=== PATIENT | female | born 1990 | race Caucasian/White ===

== ENCOUNTER 2023-03-22 08:58 | Outpatient (CLI) | payer BC, SELFPAY ==
--- NOTE | 2023-03-22 09:15 | CRLHL7_ITS ---
For Patients: As a result of the Cures Act, medical imaging exams and procedure reports are released immediately into your electronic medical record. You may view this report before your referring provider. If you have questions, please contact your health care provider. INDICATION: First trimester scan, establish dates. COMPARISON: None. TECHNIQUE: Real-time mathias-scale imaging of the pelvis was performed. FINDINGS: Sonographic imaging demonstrates a single living intrauterine gestation. The embryo demonstrates a regular cardiac rate measuring 157 beats per minute. The embryo`s crown-rump length measurement of 1.5 cm corresponds to a gestational age of 7 weeks 6 days with a sonographic due date of 11/02/2023. There is a normal-appearing yolk sac. There are no gross abnormalities noted within the embryo at this early state of development. The gestational sac has a normal appearance. There is a 0.7 x 1.1 x 1.0 cm perigestational hemorrhage. The amount of fluid within the sac appears appropriate for gestational age. The cervix is closed. The myometrium appears normal. The ovaries are of normal size. Corpus luteal cyst left ovary. There are no suspicious fluid collections noted in the cul-de-sac. IMPRESSION: Single living intrauterine with sonographic gestational age 7 weeks 6 days and sonographic due date 11/02/2023. Lower uterine segment subchorionic hemorrhage measuring 0.7 x 1.1 x 1.0 cm. Dictated by Jamari Medina MD @ 03/22/2023 11:44:36 AM (Electronically Signed)
== END 2023-03-22 08:59 | disposition home or self-care (01) ==
LOC: US 08:59
PROVIDERS: Visit Provider Advanced Practice Midwife
DX: Z34.91 Encounter for supervision of normal pregnancy, unspecified, first trimester (principal); O20.9 Hemorrhage in early pregnancy, unspecified; Z3A.01 Less than 8 weeks gestation of pregnancy
CPT/HCPCS: 76817; 86592; 86703; 86704; 86706; 86762; 86787; 86803; 86850; 86900; 86901; 87086; 87340; 87491; 87591

== ENCOUNTER 2023-05-17 10:35 | Outpatient (CLI) | payer BC, SELFPAY | END 2023-05-17 10:36 | disposition home or self-care (01) | LOC: NFLDREF 10:37 | PROVIDERS: PCP Advanced Practice Midwife; Visit Provider Advanced Practice Midwife | DX: Z34.82 Encounter for supervision of other normal pregnancy, second trimester (principal) | CPT/HCPCS: 81511 ==

== ENCOUNTER 2023-06-14 13:49 | Outpatient (CLI) | payer BC, SELFPAY ==
--- NOTE | 2023-06-14 14:00 | US_ITS ---
Patient: NATANAEL AWAN Facility:?[facility] Patient ID:?[id number] Site Patient ID:?[id number]. Site :?[id number] Study:?US-OB Pelvis OB ANATOMY-06/14/2023 2:52:57 PM Ordering Physician:NESHA MONTEMAYOR Final Report: INDICATION: 2nd trimester anatomical survey. TECHNIQUE: Ultrasound OB pelvis transabdominal. Real-time mathias-scale imaging of the fetus was performed as well as color Doppler and spectral Doppler analysis of the umbilical artery. COMPARISON: March 22, 2023. FINDINGS: Sonographic imaging demonstrates a single living intrauterine gestation. Fetus demonstrates a regular cardiac rate of 150 beats per minute. Fetus has a cephalic orientation. The placenta lies anterior without evidence of placenta previa. Amniotic fluid volume appears normal with the deepest pocket of 5 cm. Cervical length is 4 cm. Biometry: Biparietal diameter: 19 weeks 1 day, 18th percentile. Head circumference: 19 weeks 1 day, 11th percentile. Abdominal circumference: 20 weeks 0 days, 44th percentile. Femoral length: 20 weeks 0 days, 43rd percentile. The composite ultrasound gestational age is calculated at 19 weeks 5 days with an estimated sonographic due date of November 03, 2023. The weight is estimated at 320 grams, the 40th percentile. Anatomical Survey: 4 chamber heart: Visualized. Stomach: Visualized. Kidneys: Visualized. Bladder: Visualized. Spine: Visualized. Sacrum: Visualized. 4 extremities: Visualized. Cord insertion: Visualized. 3V cord: Visualized. Face: Visualized. Nose: Visualized. Lips: Visualized. Cerebellum: Visualized. Cisterna Magna: Visualized. Lateral ventricles: Visualized. IMPRESSION: 1. Single viable intrauterine . 2. No intrinsic abnormalities noted on anatomic survey. Dictated by Suresh Garcia MD @ 06/14/2023 3:11:25 PM Signed by:?Suresh Garcia MD @06/14/2023 3:11:25 PM (Electronic Signature)
== END 2023-06-14 13:50 | disposition home or self-care (01) ==
LOC: US 13:50
PROVIDERS: Visit Provider Advanced Practice Midwife
DX: Z34.92 Encounter for supervision of normal pregnancy, unspecified, second trimester (principal); Z3A.19 19 weeks gestation of pregnancy
CPT/HCPCS: 76805

== ENCOUNTER 2023-08-09 12:32 | Outpatient (CLI) | payer BC, SELFPAY | END 2023-08-09 12:33 | disposition home or self-care (01) | LOC: NFLDREF 08-29 14:22 | PROVIDERS: Visit Provider Advanced Practice Midwife | DX: Z34.83 Encounter for supervision of other normal pregnancy, third trimester (principal) | CPT/HCPCS: 86592 ==

== ENCOUNTER 2023-09-24 09:35 | Outpatient (CLI) | payer BC, SELFPAY | END 2023-09-24 09:36 | disposition home or self-care (01) | LOC: NFLDREF 09-28 15:15 | PROVIDERS: Visit Provider Advanced Practice Midwife | DX: Z34.93 Encounter for supervision of normal pregnancy, unspecified, third trimester (principal); Z3A.34 34 weeks gestation of pregnancy | CPT/HCPCS: 82728 ==

== ENCOUNTER 2023-10-04 08:54 | Outpatient (RCR) | payer BC, SELFPAY ==
--- NOTE | 2023-10-01 10:48 | PC.NURSE ---
Diagnosis: CATRACHITO in
--- NOTE | 2023-10-01 14:08 | URNOTE ---
Request received for authorization for Iron Dextran (Infed) ([id number]). Prior authorization is not required per [facility].
[2023-10-04 09:07] VITALS: BP 106/74; PULSE 95; RESP 16; TEMP 36.4; O2SAT 98
[2023-10-04] MEDS: SODIUM CHLORIDE 0.9 % (FLUSH) 10 ML SYRINGE IVF (09:19)
[2023-10-04] MEDS: 0.9 % SODIUM CHLORIDE 250 ml IV (09:20)
[2023-10-04] MEDS: IRON DEXTRAN COMPLEX 25 MG in 0.9 % SODIUM CHLORIDE 100 ml 100 ML 402 MG IVPB (09:34)
[2023-10-04 10:01] VITALS: BP 103/69; PULSE 83; RESP 16; TEMP 36.3; O2SAT 97
[2023-10-04 10:47] VITALS: BP 107/72; PULSE 76; RESP 16; TEMP 36.1; O2SAT 100
[2023-10-04] MEDS: IRON DEXTRAN COMPLEX 975 MG in 0.9 % SODIUM CHLORIDE 250 ml 250 ML 270 MG IVPB (11:15)
[2023-10-04 12:29] VITALS: BP 106/70; PULSE 73; RESP 16; TEMP 36.3; O2SAT 97
[2023-10-04 13:04] VITALS: BP 103/67; PULSE 72; RESP 16; TEMP 36; O2SAT 99
== END 2024-04-01 23:59 | disposition home or self-care (01) ==
LOC: CCIC 08:54
PROVIDERS: Visit Provider Advanced Practice Midwife
DX: O99.019 Anemia complicating pregnancy, unspecified trimester (principal); D50.9 Iron deficiency anemia, unspecified
CPT/HCPCS: 96365; 96376; J1750; J7050

== ENCOUNTER 2023-10-08 10:09 | Outpatient (CLI) | payer BC, SELFPAY ==
[2023-10-09 16:28] LABS: Strep B DNA Probe Negative (Negative)
[2023-10-10 01:07] LABS: Strep B Susceptibility Needed? No
== END 2023-10-08 10:10 | disposition home or self-care (01) ==
LOC: NFLDREF 10:10
PROVIDERS: Visit Provider Advanced Practice Midwife
DX: Z34.93 Encounter for supervision of normal pregnancy, unspecified, third trimester (principal); Z3A.36 36 weeks gestation of pregnancy
CPT/HCPCS: 87081; 87653

== ENCOUNTER 2023-11-08 07:04 | Inpatient (IN) | payer BC, SELFPAY ==
[2023-11-08] VITALS (45 sets, daily range): BP systolic 118–150; BP diastolic 61–92; PULSE 74–114; TEMP 36.6–37; O2SAT 80–99; BMI 41.9
--- NOTE | 2023-11-08 07:47 | P.LDBA_ITS ---
Subjective History of Present Illness Date Seen: 11/08/23 Narrative: Arthur is being admitted to Labor and Delivery for induction of labor for post dates. She is a 33 year old at 41.0 weeks gestation. Her full history and physical was dictated by ENDY Calix on 10/15/23. Please see this for details. Specific Issues/Plans : Benjamin H&P completed by ENDY Calix on 10/15/2023 1. Nausea and vomiting. PRN Zofran. Added Compazine. Improved. 2. Hx of Hep B infection w/ immunity NOB labs Hep B antigen neg antibody and core antibody positive, has immunity due to natural infection 3. Weight gain at 20wks 24lb. Discussed healthy diet and increasing exercise. Up 74 lb at 32 weeks, declines growth US at 36 weeks 4. Anemia Iron infusion done at 34 weeks, just ordered once. Flu: 03/22/2023 Covid: initial series, one booster TDAP: 08/23/2023 OB - Problem Based A/P Additional Plan (1) Encounter for induction of labor: Status: Acute (2) Post-dates : Status: Acute (3) Excess weight gain in : Status: Acute Plan Assessment:?? at 41.0 weeks gestation?? GBS negative?? Labor type: Induced, not in labor at this time? Category 1 FHR pattern.? complicated by: 1. Nausea and vomiting. PRN Zofran. Added Compazine. Improved. 2. Hx of Hep B infection w/ immunity NOB labs Hep B antigen neg antibody and core antibody positive, has immunity due to natural infection 3. Weight gain at 20wks 24lb. Discussed healthy diet and increasing exercise. Up 74 lb at 32 weeks, declines growth US at 36 weeks 4. Anemia Iron infusion done at 34 weeks, just ordered once. Plan:?? * ?Admit to L & D? * IV access: SL * Monitoring per policy: continuous ? * Candidate for analgesia of choice.? Planning epidural for pain management * Reviewed risks and benefits of IOL with Cook balloon, pitocin vs cytotec/cervadil. Pt prefers cytotec. Pitocin to follow if needed.? * Patient encouraged to reposition and ambulate to promote physiologic labor and . * Anticipate ? Delivery/Labor/Induction Plan Plan: induction Induction method: per misoprostol protocol OB Exam Physical Exam Vital signs: VSS, afebrile? General Appearance:? Calm, cooperative.? No acute distress.? Normal affect.? Psychiatric Exam: Alert and oriented, appropriate affect? HEENT: normocephalic, neck supple, full ROM? Respiratory:? Symmetrical chest wall movement.? Normal respiratory effort.? Clear to auscultation? Cardiac:? regular rate and rhythm? Abdomen: Gravid, non tender? Extremities:? normal and trace edema? Skin: warm, dry.??? Ctx:?irritabil uterine contractions? FHTs:? Baseline: 135.? Variability: moderate.?? Accels: +.??? Decels:? .? SVE: 05/04/-3? Membranes: intact? Detailed Labor and Delivery Exam Patient Gravid: Yes
[2023-11-08] MEDS: miSOPROStoL 25 MCG/0.25 TABLET VAGINAL ×3 (08:42→14:58)
--- NOTE | 2023-11-08 12:31 | PM.OBPNL ---
Subjective Date Seen: 11/08/23 Narrative: ?Arthur is coping well with labor pain/contractions. ?Benjamin is with her for support. ?She is not feeling a lot of contractions yet and has just received her second dose of Cytotec. Currently is resting in bed, per RN she has been up and moving prior to this. Objective Exam: VSS, afebrile General Appearance:? Calm, cooperative. ?No acute distress. ? Psychiatric Exam: Alert and oriented, appropriate affect Abdomen: Gravid Ctx: uterine irritability and rare contractions ?Mild ? ? FHTs: ?Baseline: 145. ? ? Variability: moderate. ?Accels: +. ? ?Decels: ?-. SVE: deferred at this time Membranes: Intact ? Vital Signs: Last Vital Signs Temp 97.8 F 11/08/23 11:42 Pulse 87 11/08/23 11:44 BP 121/82 11/08/23 11:44 Pulse Ox 98 11/08/23 11:43 Plan Plan: Assessment:?? at 41.0 gestation?? GBS neg Patient is coping well with challenges of labor.?? Labor type: Induced, Early labor? Category 1 FHR pattern.? complicated by: 1. Nausea and vomiting. PRN Zofran. Added Compazine. Improved. 2. Hx of Hep B infection w/ immunity NOB labs Hep B antigen neg antibody and core antibody positive, has immunity due to natural infection 3. Weight gain at 20wks 24lb. Discussed healthy diet and increasing exercise. Up 74 lb at 32 weeks, declines growth US at 36 weeks 4. Anemia Iron infusion done at 34 weeks, just ordered once. Labor complicated by: NA? Plan:?? Continue with Cytotec per protocol Continue with routine intrapartum cares as ordered.?? Patient encouraged to move and change positions to promote physiologic labor and .?? Nonpharmacologic comfort measures per patient preference. Candidate for analgesia of choice if desired. Patient planning epidural Anticipate progress to NVD. ?
--- NOTE | 2023-11-08 16:03 | PM.OBPNL ---
Subjective Date Seen: 11/08/23 Narrative: ?Arthur is coping well with labor pain/contractions. ?Benjamin is with her for support. ?She would like to continue with repositioning and relaxation for comfort and pain management.?Is requesting IV placement so she can have her epidural placed in a timely manner when she is ready for it. Objective Exam: VSS, afebrile General Appearance:? Calm, cooperative. ?No acute distress. ? Psychiatric Exam: Alert and oriented, appropriate affect Abdomen: Gravid Ctx: ?Q 1.5-2 min apart. ? ? ?moderate FHTs: ?Baseline: 145. ? ? Variability: moderate. ?Accels: +. ? ?Decels: ?-. SVE: 3/50/-2 Membranes: Intact ? Vital Signs: Last Vital Signs Temp 97.8 F 11/08/23 11:42 Pulse 74 11/08/23 14:54 BP 125/82 11/08/23 14:54 Pulse Ox 97 11/08/23 14:54 Plan Plan: Assessment:?? at 41.0 gestation?? GBS neg Patient is coping well with challenges of labor.?? Labor type: Induced, Early labor? Category 1 FHR pattern.? complicated by: 1. Nausea and vomiting. PRN Zofran. Added Compazine. Improved. 2. Hx of Hep B infection w/ immunity NOB labs Hep B antigen neg antibody and core antibody positive, has immunity due to natural infection 3. Weight gain at 20wks 24lb. Discussed healthy diet and increasing exercise. Up 74 lb at 32 weeks, declines growth US at 36 weeks 4. Anemia Iron infusion done at 34 weeks, just ordered once. Labor complicated by: NA? Plan:?? IV placement now to prepare for epidural, she may have when ready. Discontinue Cytotec dosing, plan to switch to IV Pitocin per protocol if needed, titrate per maternal and response. Continue with routine intrapartum cares as ordered.?? Patient encouraged to move and change positions to promote physiologic labor and .?? Nonpharmacologic comfort measures per patient preference. Candidate for analgesia of choice if desired. Patient planning waterbirth Anticipate progress to NVD. ?
[2023-11-08 16:29] LABS: Basophils Absolute Auto 0.03 K/uL (0.00-0.30); Basophils Percent Auto 0.4 % (0.0-3.0); Eosinophils Absolute Auto 0.11 K/uL (0.00-0.50); Eosinophils Percent Auto 1.3 % (0.0-7.0); Hematocrit 40.1 % (33.0-51.0); Hemoglobin* 12.4 gm/dL (12.0-16.0); Immature Granulocytes Abs Auto 0.04 K/uL (0.00-0.30); Immature Granulocytes Pct Auto 0.5 %; Lymphocytes Absolute Auto 1.76 K/uL (0.90-2.90); Lymphocytes Percent Auto 21.4 % (20-44); Mean Corpuscular HGB Conc 31 gm/dL (32-36); Mean Corpuscular Hemoglobin 26 pg (26-34); Mean Corpuscular Volume 84 fL (80-100); Monocytes Percent Auto 7.2 % (0.0-11.0); Neutrophils Absolute Auto 5.71 K/uL (1.7-7.0); Neutrophils Percent Auto 69.2 % (42.0-72.0); Platelet Count* 197 K/uL (140-440); RDW Coefficient of Variation % 18.9 % (11.5-15.5); White Blood Count* 8.24 K/uL (4.50-11.00)
[2023-11-08] MEDS: LACTATED RINGERS 1000 ML 1,000 ML IV (16:33)
[2023-11-08 16:41] LABS: Slide Review Reflex No
[2023-11-08] MEDS: BUPIVACAINE 0.25% PF 10 ML 10 ML ML EPIDURAL (17:50)
[2023-11-08] MEDS: ROPIVACAINE 0.2% 100 ml 100 ML 12 MG EPIDURAL ×2 (17:54→23:50)
[2023-11-08] MEDS: LACTATED RINGERS 1000 ML 1,000 ML 125 ML IV (20:28)
--- NOTE | 2023-11-08 22:05 | PM.OBPNL ---
Subjective Date Seen: 11/08/23 Narrative: ?Valentina is coping well with labor pain/contractions, now comfortable with an epidural in place. ?Benjamin is with her for support. ?She would like to continue with her epidural for comfort and pain management.?She continues to contract frequently and has not received any more medication to stimulate labor. Objective Exam: VSS, afebrile General Appearance:? Calm, cooperative. ?No acute distress. ? Psychiatric Exam: Alert and oriented, appropriate affect Abdomen: Gravid Ctx: ?Q 1.5-3 min apart. ? ? ?Strong FHTs: ?Baseline: 145. ? ? Variability: moderate. ?Accels: +. ? ?Decels: ?-. SVE: /-2 Membranes: Intact ? Vital Signs: Last Vital Signs Temp 98.3 F 11/08/23 20:56 Pulse 77 11/08/23 21:40 BP 123/64 11/08/23 21:40 Pulse Ox 80 L 11/08/23 18:13 Plan Plan: Assessment:?? at 41.0 gestation?? GBS negative Patient is coping well with challenges of labor.?? Labor type: Induced, Early labor? Category 1 FHR pattern.? complicated by: 1. Nausea and vomiting. PRN Zofran. Added Compazine. Improved. 2. Hx of Hep B infection w/ immunity NOB labs Hep B antigen neg antibody and core antibody positive, has immunity due to natural infection 3. Weight gain at 20wks 24lb. Discussed healthy diet and increasing exercise. Up 74 lb at 32 weeks, declines growth US at 36 weeks 4. Anemia Iron infusion done at 34 weeks, just ordered once. Labor complicated by: tachysystolic contractions without ?cervical change Plan:?? Continue with frequent position changes Continuous monitoring Continue with routine intrapartum cares as ordered.?? Patient encouraged to move and change positions to promote physiologic labor and .?? Nonpharmacologic comfort measures per patient preference. Candidate for analgesia of choice if desired. Anticipate progress to NVD. ?
--- NOTE | 2023-11-08 23:03 | PM.OBPNL ---
Subjective Date Seen: 11/08/23 Narrative: ?Arelul is coping well with labor pain/contractions. ?Benjamin is with her for support. ?She would like to continue with epidural for comfort and pain management.?Reviewed R/B/A moving forward of attempting AROM, adding Pitocin or waiting for labor to continue to progress. Arthur was agreeable to AROM if position was low enough. Also discussed placing internal monitors to better evaluate strength of contractions and easier monitoring of heart rate as external monitoring has at times been difficult when she changes positions. Objective Exam: VSS, afebrile General Appearance:? Calm, cooperative. ?No acute distress. ? Psychiatric Exam: Alert and oriented, appropriate affect Abdomen: Gravid Ctx: ?Q 1-3 min apart. ? ? ?Strong FHTs: ?Baseline: 145. ? ? Variability: moderate. ?Accels: +. ? ?Decels: ?-. SVE: 5/60/-2 Membranes: ?AROM clear fluid Vital Signs: Last Vital Signs Temp 98.3 F 11/08/23 20:56 Pulse 81 11/08/23 22:41 BP 130/73 11/08/23 22:41 Pulse Ox 80 L 11/08/23 18:13 Plan Plan: Assessment:?? at 41.0 gestation?? GBS negative Patient is coping well with challenges of labor.?? Labor type: Induced, Early labor? Category 1 FHR pattern.? complicated by: 1. Nausea and vomiting. PRN Zofran. Added Compazine. Improved. 2. Hx of Hep B infection w/ immunity NOB labs Hep B antigen neg antibody and core antibody positive, has immunity due to natural infection 3. Weight gain at 20wks 24lb. Discussed healthy diet and increasing exercise. Up 74 lb at 32 weeks, declines growth US at 36 weeks 4. Anemia Iron infusion done at 34 weeks, just ordered once. Labor complicated by: elevated BP without diagnosis of hypertension? Plan:?? Continue with routine intrapartum cares as ordered.?? Patient encouraged to move and change positions to promote physiologic labor and .?? Epidural infusing per anesthesia Consider starting IV Pitocin if contractions are not adequate MVUs Anticipate progress to NVD. ?
[2023-11-08] MEDS: OXYTOCIN 30 unit/500 ML in NS 30 UNIT/500 ML BAG IVPB (23:50)
[2023-11-09] VITALS (25 sets, daily range): BP systolic 112–142; BP diastolic 57–88; PULSE 70–99; RESP 16; TEMP 36.6–37.3; O2SAT 80–99
--- NOTE | 2023-11-09 01:20 | P.OBPN_ITS ---
Subjective Date Seen: 11/09/23 Narrative: Arthur has begun to have pain in her left lower quadrant which she states is painful even between contractions. She flinched in pain when I gently touched this area and rates her pain between contractions 3/10. She is not getting any pain relief from her epidural at this time despite anesthesia coming and rebolused her. She rates her pain with contractions 10/10. IV Pitocin was turned off and she continues to contract on her own. She was turned to hands and knees on the schroeder bag and is currently breathing through contractions and feels very uncomfortable with them. Dr. Busby was called and requested to come to the bedside for evaluation of labor progress and lower abdominal pain. She has had adequate MVUs for over 2 hours at this time. Objective Exam: VSS, afebrile General Appearance:? Calm, cooperative. ?No acute distress. ? Psychiatric Exam: Alert and oriented, appropriate affect Abdomen: Gravid Ctx: ?Q 1-3 min apart. ? ? ?Strong FHTs: ?Baseline: 145. ? ? Variability: miimal. ?Accels: -. ? ?Decels: ?variable. SVE: 5/60/-2 Membranes: ?AROM continues to leak clear fluid Vital Signs: Last Vital Signs Temp 98.2 F 11/08/23 23:54 Pulse 80 11/09/23 00:54 BP 140/75 H 11/09/23 00:54 Pulse Ox 97 11/09/23 01:16 Assessment Assessment: induction ongoing Plan Plan: Assessment:?? at 41.0 gestation?? GBS neg Patient is coping with challenges of labor.?? Labor type: Induced, Early labor? Category 2 FHR pattern.? complicated by: 1. Nausea and vomiting. PRN Zofran. Added Compazine. Improved. 2. Hx of Hep B infection w/ immunity NOB labs Hep B antigen neg antibody and core antibody positive, has immunity due to natural infection 3. Weight gain at 20wks 24lb. Discussed healthy diet and increasing exercise. Up 74 lb at 32 weeks, declines growth US at 36 weeks 4. Anemia Iron infusion done at 34 weeks, just ordered once. Labor complicated by: Has now had elevated blood pressures 4 hours apart, meets criteria for g estational hypertension left lower quadrant pain in labor? Plan:?? Consult OB provider for evaluation of stalled labor and abdominal pain Continuous monitoring of FHR Reposition as tolerated Continue with routine intrapartum cares as ordered.?? Preeclampsia labs now
[2023-11-09 01:57] LABS: Hematocrit 40.5 % (33.0-51.0); Hemoglobin* 12.6 gm/dL (12.0-16.0); Mean Corpuscular HGB Conc 31 gm/dL (32-36); Mean Corpuscular Hemoglobin 26 pg (26-34); Mean Corpuscular Volume 84 fL (80-100); Platelet Count* 196 K/uL (140-440); Red Blood Count 4.84 m/uL (4.00-5.20); White Blood Count* 12.08 K/uL (4.50-11.00)
[2023-11-09 02:08] LABS: Slide Review Reflex No
[2023-11-09 02:20] LABS: Alanine Aminotransferase* 10 U/L (4-35); Aspartate Amino Transferase* 16 U/L (12-35); Blood Urea Nitrogen* 8 mg/dL (5-24)
[2023-11-09] MEDS: IBUPROFEN 600 MG TABLET PO ×4 (02:24→20:16)
--- NOTE | 2023-11-09 02:37 | W.PM.OBVAGDE ---
OB Procedure Vag Delivery Mother Details Mother Details: The patient is a 33 year-old, 3, Para 1, admitted on 11/08/23 at Days 41.0 gestation for post dates induction of labor. : 3 Para: 2 Weeks Gestation: 41.1 Admission Date: 11/08/23 Additional Details Amniotic Membrane Status: AROM Amniotic Membrane Rupture Date: 11/09/23 Amniotic Membrane Rupture Time: 22:52 Amniotic Membrane Fluid Description: Clear Analgesia/Anesthesia Type: Epidural Waterbirth: No Pitcoin: Yes Intrapartal Events: Labor Induction and Anesthesia Complications (epidural stopped relieving pain) Induction Method: per misoprostol protocol Delivery augmentation: rupture of membranes Labor Onset: 15:59 Complete: 01:41 Pushin:41 Heart: heart tones during second stage were Category 2, moderate variability with variable deceleration. Delivery Details Delivery Date: 11/09/23 Delivery Time: 01:54 Route of delivery: Infant Gender: Female Viability: Alive; Heart Rate Present Position at Delivery: OA Delivery Details: 33?y.o?at 41.1 weeks.? Arthur was admitted for induction of labor for postdates. Given Cytotec per protocol for 3 doses then began contraction regularly. She received an epidural for pain management that was working well but then began to have left hip and lower abdomen pain not relieved by the epidural and her contractions began to increase in intensity. Anesthesia was called and they attempted to bolus her without relief. OB was consulted via phone for concerns about >2 hours without change and her left abdominal pain. While waiting for them to arrive to evaluate, she was repositioned to her hands and knees and shortly thereafter began to spontaneously push. ? She became complete at 0141.??She pushed in right tilt position effectively.? Spontaneous vaginal delivery at 0154 of?a viable? female .??Delivered in vertex OA position.??Shoulders delivered easily.? Spontaneous cry noted.??Infant placed low on maternal abdomen for a short cord.??Cord?was clamped and cut after a 5+ minute delay.??Nose and mouth were bulb suctioned.? Shoulder dystocia: no? Nuchal cord: no? Meconium stained?fluid: no? Water : no? ? ? 8 at 1 minute and 9 at 5 minutes.? Weight is pending. ? Placenta delivered spontaneously and?complete?at 0225 with a?3 vessel?cord.?Just before placenta delivered a large clot was passed. ? Bleeding controlled with fundal massage and?pitocin?for AMTSL.? ? Mother and were stable after delivery.? ? Lacerations:? small abrasion to perineum otherwise intact, no repair needed. ? Bleeding?post delivery?was: minimal. ?The fundus was firm to palpation.? Blood loss: 450?mL.? Blood loss measurement type: QBL? ? ? Sponge,?lap?and needles counts are correct.? Mother and infant were stable after delivery.? 1 Minute Interval Total Score: 8 5 Minute Interval Total Score: 9 Additional Details Shoulder Dystocia: No Placenta Delivery Time: 02:25 Placental Delivery Description: Spontaneous Procedure Done: Global Blood Loss: 450 Laceration: Superficial (perineal abrasion) Blood Loss Measurement Type: QBL Bakri Used: No Sponge/Need Count Correct: Yes Cord Vessel Description: 3 Vessels Event Summary Status: Mother and infant were stable after delivery. Disposition: floor
[2023-11-09 03:21] LABS: Total Protein Urine 25 mg/dL
[2023-11-09 03:22] LABS: Creatinine Urine 113.8 mg/dL; Protein Creatinine Ratio Urine 0.22 (0-0.19)
[2023-11-09 07:49] LABS: Hematocrit 36.7 % (33.0-51.0); Hemoglobin* 11.3 gm/dL (12.0-16.0); Mean Corpuscular HGB Conc 31 gm/dL (32-36); Mean Corpuscular Hemoglobin 26 pg (26-34); Mean Corpuscular Volume 84 fL (80-100); Platelet Count* 171 K/uL (140-440); Red Blood Count 4.36 m/uL (4.00-5.20); White Blood Count* 15.09 K/uL (4.50-11.00)
--- NOTE | 2023-11-09 07:52 | PM.OBPNVD1 ---
OB - PN:Subj Subjective Date Seen: 11/09/23 Narrative: Arthur is a 33 y.o. who was admitted to L & D for IOL with cytotec and pitocin. She was diagnosed with GHTN, but I do not see elevations more than 4 hrs apart and she has been normotensive since approximately 1AM.?She had an uncomplicated NVD, but struggled with pain control under epidural with sudden transition and . She states she feels okay and is just glad it was over.?The patient feels well. ?The pain is well controlled with current medications. ?She has no new complaints. ?She is bottle feeding pumped only breast milk and reports things are going well.?She had significant struggles with nursing her first daughter and feels this is the best decision for the family with respect to her mental health. the patient has done well thus far, but only 6 hours approximately PP.? Vitals have been stable.? She has remained afebrile.? Has a good appetite, is tolerating a general diet. ?She is voiding without difficulty.? She is ambulating and denies any dizziness.? Has Small amount of rubra lochia. ? OB - PN: Obj Exam Physical Exam: Vital signs: Temp Pulse BP Pulse Ox 98.2 F 72 113/60 81 L 11/09/23 03:54 11/09/23 03:54 11/09/23 03:54 11/09/23 01:45 Narrative: GENERAL APPEARANCE:? normal affect, alert, no distress MOOD:? appropriate OB - PN: Obj Data Labs Labs: Laboratory Results - last 24 hr 11/08/23 11/08/23 11/09/23 07:47 16:23 01:32 WBC 8.24 RBC 4.80 Hgb 12.4 Hct 40.1 MCV 84 MCH 26 MCHC 31 L RDW Coeff of Danny 18.9 H Plt Count 197 Neut % (Auto) 69.2 Lymph % (Auto) 21.4 Bollinger % (Auto) 7.2 Eos % (Auto) 1.3 Baso % (Auto) 0.4 Neut # (Auto) 5.71 Lymph # (Auto) 1.76 Bollinger # (Auto) 0.60 Eos # (Auto) 0.11 Baso # (Auto) 0.03 Abs Immat Gran (auto) 0.04 Imm/Tot Granulo (auto) 0.5 BUN AST ALT Urine Creatinine 113.8 Protein/Creatinin Ratio 0.22 H Urine Total Protein 25 Blood Type A Positive Antibody Screen NEGATIVE 11/09/23 01:41 WBC 12.08 H RBC 4.84 Hgb 12.6 Hct 40.5 MCV 84 MCH 26 MCHC 31 L RDW Coeff of Danny Plt Count 196 Neut % (Auto) Lymph % (Auto) Bollinger % (Auto) Eos % (Auto) Baso % (Auto) Neut # (Auto) Lymph # (Auto) Bollinger # (Auto) Eos # (Auto) Baso # (Auto) Abs Immat Gran (auto) Imm/Tot Granulo (auto) BUN 8 AST 16 ALT 10 Urine Creatinine Protein/Creatinin Ratio Urine Total Protein Blood Type Antibody Screen OB - PN: A/P Delivery Assessment and Plan (1) Excess weight gain in : Status: Acute (2) Encounter for care of lactating mother: Status: Acute Plan Discharge home with baby anticipated for tomorrow.? Follow up in 2 weeks and 6 weeks.? Bottlefeeding breast milk, may see if needed? Hgb 11.3. ? Current Normotensive? Labs WNL or stable with trending? Plan day: 0 Plan: routine care
[2023-11-09 07:55] LABS: Slide Review Reflex No
[2023-11-09 08:03] LABS: Creatinine* 0.5 mg/dL (0.5-1.5); Est. Creatinine Clearance* 162.95; Estimated Glomerular Filt Rate 128 ml/min
[2023-11-09 08:04] LABS: Alanine Aminotransferase* 10 U/L (4-35); Blood Urea Nitrogen* 6 mg/dL (5-24)
[2023-11-09] MEDS: ACETAMINOPHEN 500 MG TABLET 1000 MG PO ×3 (08:07→20:16)
[2023-11-09] MEDS: DOCUSATE SODIUM 100 MG CAPSULE PO (08:54)
--- NOTE | 2023-11-09 10:11 | PM.ANBPRC ---
PFSH PFSH Medical History No significant past medical history Surgical History [place] teeth extracted ?K08.409 - Partial loss of teeth, unspecified cause, unspecified class (ICD-10) Family History Mother Dementia Aphasia Social History Narrative: SOCIAL Education: bachelors Work: [employer] Partner: [employer] Lives with: , child (girl Amie 2 years old) Pets: 2 dogs Abuse: Denies past Special Diet: Denies Ok with a blood transfusion: yes Culture or taoism beliefs: denies RISK FACTORS Exercise Times/wk: occasional Depression/Anxiety: denies Seat Belt Use: Routinely Smoking: Denies past/present Alcohol/day: Denies while Caffeine: soda once a day Drug Use: Denies past/present Chicken Pox: Yes as a child MRSA: Denies What is your current living situation?: I presently have a place to live Problems where you live: no known problems In the past 12 months, utilities in danger of being shut off: no In past 12 months, lack of transportation kept you from medical appts, meetings, work, or getting things needed for daily living: no In the past 12 mos, have been you worried that your food would run out before you had money to buy more?: never true In the past 12 mos, the food you bought just didn't last and you didn't have money to buy more?: never true Smoking Status: Never smoker How often does anyone, including family, friends and others, physically hurt you: never How often does anyone, including family, friends and others, insult or talk down to you: never How often does anyone, including family, friends and others, threaten you with harm: never How often does anyone, including family, friends and others, scream or curse at you: never Little interest or pleasure in doing things: not at all Feeling down, depressed, or hopeless: not at all Meds Home Medications and Allergies Home Medications ?Medication ?Instructions ?Recorded ?Confirmed ?Type docusate sodium 100 mg capsule 100 mg PO QDAY 04/19/23 11/08/23 History (Colace) vitamins no.119-iron 1 tab PO DAILY 04/19/23 11/08/23 History fumarate 29 mg-folic acid 1 mg tablet calcium carbonate (Tums) 200 mg PO TID PRN 10/04/23 11/08/23 History famotidine 20 mg tablet (Pepcid) 20 mg PO QDAY 11/05/23 11/08/23 History Allergies Allergy/AdvReac Type Severity Reaction Status Date / Time No Known Drug Allergies Allergy Verified 11/08/23 07:47 Results Labs Labs: Laboratory Results - last 24 hr 11/08/23 11/08/23 11/09/23 07:47 16:23 01:32 WBC 8.24 RBC 4.80 Hgb 12.4 Hct 40.1 MCV 84 MCH 26 MCHC 31 L RDW Coeff of Danny 18.9 H Plt Count 197 Neut % (Auto) 69.2 Lymph % (Auto) 21.4 [place] % (Auto) 7.2 Eos % (Auto) 1.3 Baso % (Auto) 0.4 Neut # (Auto) 5.71 Lymph # (Auto) 1.76 [place] # (Auto) 0.60 Eos # (Auto) 0.11 Baso # (Auto) 0.03 Abs Immat Gran (auto) 0.04 Imm/Tot Granulo (auto) 0.5 BUN Creatinine Estimated Creat Clear Estimated GFR AST ALT Urine Creatinine 113.8 Protein/Creatinin Ratio 0.22 H Urine Total Protein 25 Blood Type A Positive Antibody Screen NEGATIVE 11/09/23 11/09/23 01:41 07:45 WBC 12.08 H 15.09 H RBC 4.84 4.36 Hgb 12.6 11.3 L Hct 40.5 36.7 MCV 84 84 MCH 26 26 MCHC 31 L 31 L RDW Coeff of Danny Plt Count 196 171 Neut % (Auto) Lymph % (Auto) [place] % (Auto) Eos % (Auto) Baso % (Auto) Neut # (Auto) Lymph # (Auto) [place] # (Auto) Eos # (Auto) Baso # (Auto) Abs Immat Gran (auto) Imm/Tot Granulo (auto) BUN 8 6 Creatinine 0.5 Estimated Creat Clear 162.95 Estimated GFR 128 AST 16 ALT 10 10 Urine Creatinine Protein/Creatinin Ratio Urine Total Protein Blood Type Antibody Screen Vital Signs Vital Signs: Last Vital Signs Temp 98.2 F 11/09/23 08:00 Pulse 78 11/09/23 08:00 Resp 16 11/09/23 08:00 BP 117/79 11/09/23 08:00 Pulse Ox 96 11/09/23 08:00 O2 Del Method Room Air 11/09/23 08:00 Weight: 125.1 kg Height: 172.72 cm Anesthesia Procedures Epidural Insertion Patient Location: OB Start Time: 17:30 Stop Time: 18:15 Start Date: 11/08/23 Stop Date: 11/08/23 Reason for Block: procedure for pain Patient Position: sitting Performed By: Eli Kat Preanesthetic Checklist: IV checked, risks and benefits discussed, monitors and equipment checked, timeout performed and anesthesia consent Prep: chlorhexidine gluconate Monitoring: blood pressure monitoring, continuous pulse oximetry and heart rate Approach: midline Vertebral Space: lumbar (1-5) Epidural Technique: DAR saline Needle Type: Tuohy needle Injection Technique: continuous catheter Needle gauge: 17 Needle Length (cm): 10 cm Needle Insertion Depth (cm): 9 Catheter Gauge: 19 Catheter Type: multi-orifice Catheter at skin depth (cm): 14 Test Dose Result: negative and lidocaine 1.5% with epinephrine 1 to 200,000
--- NOTE | 2023-11-09 10:12 | PM.ANBPRC ---
PFSH PFSH Medical History No significant past medical history Surgical History [place] teeth extracted ?K08.409 - Partial loss of teeth, unspecified cause, unspecified class (ICD-10) Family History Mother Dementia Aphasia Social History Narrative: SOCIAL Education: bachelors Work: [employer] Partner: [employer]-, [employer] Lives with: , child (girl Amie 2 years old) Pets: 2 dogs Abuse: Denies past Special Diet: Denies Ok with a blood transfusion: yes Culture or episcopal beliefs: denies RISK FACTORS Exercise Times/wk: occasional Depression/Anxiety: denies Seat Belt Use: Routinely Smoking: Denies past/present Alcohol/day: Denies while Caffeine: soda once a day Drug Use: Denies past/present Chicken Pox: Yes as a child MRSA: Denies What is your current living situation?: I presently have a place to live Problems where you live: no known problems In the past 12 months, utilities in danger of being shut off: no In past 12 months, lack of transportation kept you from medical appts, meetings, work, or getting things needed for daily living: no In the past 12 mos, have been you worried that your food would run out before you had money to buy more?: never true In the past 12 mos, the food you bought just didn't last and you didn't have money to buy more?: never true Smoking Status: Never smoker How often does anyone, including family, friends and others, physically hurt you: never How often does anyone, including family, friends and others, insult or talk down to you: never How often does anyone, including family, friends and others, threaten you with harm: never How often does anyone, including family, friends and others, scream or curse at you: never Little interest or pleasure in doing things: not at all Feeling down, depressed, or hopeless: not at all Meds Home Medications and Allergies Home Medications ?Medication ?Instructions ?Recorded ?Confirmed ?Type docusate sodium 100 mg capsule 100 mg PO QDAY 04/19/23 11/08/23 History (Colace) vitamins no.119-iron 1 tab PO DAILY 04/19/23 11/08/23 History fumarate 29 mg-folic acid 1 mg tablet calcium carbonate (Tums) 200 mg PO TID PRN 10/04/23 11/08/23 History famotidine 20 mg tablet (Pepcid) 20 mg PO QDAY 11/05/23 11/08/23 History Allergies Allergy/AdvReac Type Severity Reaction Status Date / Time No Known Drug Allergies Allergy Verified 11/08/23 07:47 Results Labs Labs: Laboratory Results - last 24 hr 11/08/23 11/08/23 11/09/23 07:47 16:23 01:32 WBC 8.24 RBC 4.80 Hgb 12.4 Hct 40.1 MCV 84 MCH 26 MCHC 31 L RDW Coeff of Danny 18.9 H Plt Count 197 Neut % (Auto) 69.2 Lymph % (Auto) 21.4 [place] % (Auto) 7.2 Eos % (Auto) 1.3 Baso % (Auto) 0.4 Neut # (Auto) 5.71 Lymph # (Auto) 1.76 [place] # (Auto) 0.60 Eos # (Auto) 0.11 Baso # (Auto) 0.03 Abs Immat Gran (auto) 0.04 Imm/Tot Granulo (auto) 0.5 BUN Creatinine Estimated Creat Clear Estimated GFR AST ALT Urine Creatinine 113.8 Protein/Creatinin Ratio 0.22 H Urine Total Protein 25 Blood Type A Positive Antibody Screen NEGATIVE 11/09/23 11/09/23 01:41 07:45 WBC 12.08 H 15.09 H RBC 4.84 4.36 Hgb 12.6 11.3 L Hct 40.5 36.7 MCV 84 84 MCH 26 26 MCHC 31 L 31 L RDW Coeff of Danny Plt Count 196 171 Neut % (Auto) Lymph % (Auto) [place] % (Auto) Eos % (Auto) Baso % (Auto) Neut # (Auto) Lymph # (Auto) [place] # (Auto) Eos # (Auto) Baso # (Auto) Abs Immat Gran (auto) Imm/Tot Granulo (auto) BUN 8 6 Creatinine 0.5 Estimated Creat Clear 162.95 Estimated GFR 128 AST 16 ALT 10 10 Urine Creatinine Protein/Creatinin Ratio Urine Total Protein Blood Type Antibody Screen Vital Signs Vital Signs: Last Vital Signs Temp 98.2 F 11/09/23 08:00 Pulse 78 11/09/23 08:00 Resp 16 11/09/23 08:00 BP 117/79 11/09/23 08:00 Pulse Ox 96 11/09/23 08:00 O2 Del Method Room Air 11/09/23 08:00 Weight: 125.1 kg Height: 172.72 cm Anesthesia Procedures Epidural Insertion Start Time: 00:30 Stop Time: 01:00 Start Date: 11/09/23 Stop Date: 11/09/23 Reason for Block: procedure for pain Patient Position: supine Performed By: Eli Kat Preanesthetic Checklist: IV checked Monitoring: blood pressure monitoring and continuous pulse oximetry
--- NOTE | 2023-11-09 17:18 | PM.ANPOST ---
Post Anesthesia Note Post Anesthesia Note Patient seen: Inpatient Respiratory Status: adequate Cardiovascular Status: adequate Mental Status: baseline Pain: other (Initial pain relief from 09/22 to 04/24. Pt reported increased pain in left hip after change of position with RNs.) Temp: baseline Anesthetic awareness: N/A Complications: none Follow care: none
[2023-11-10 06:27] LABS: Hemoglobin* 10.6 gm/dL (12.0-16.0)
[2023-11-10] MEDS: ACETAMINOPHEN 500 MG TABLET 1000 MG PO (07:57)
[2023-11-10] MEDS: IBUPROFEN 600 MG TABLET PO (07:57)
[2023-11-10 07:59] VITALS: BP 109/75; PULSE 74; RESP 18; TEMP 36.4; O2SAT 96
--- NOTE | 2023-11-10 08:25 | P.DS_ITS ---
DS: Providers Provider Date Seen: 11/10/23 Date of admission: 11/08/23 07:04 Admitting Clinician: Milly Arriaza CNM Attending Physician on discharge: Isra SCHUMACHER FLIGHT DISPATCHER Date of Discharge: 11/10/23 DS: Diagnosis Discharge Diagnosis (1) Encounter for care of lactating mother: Status: Acute Exam Narrative: Exam Narrative: GENERAL APPEARANCE:? normal affect, alert, no distress MOOD:? appropriate CHEST:? clear to auscultation HEART:? regular rate and rhythm ABDOMEN:? soft, non-tender the uterine fundus is 1 cm below Umbilicus, Midline and is appropriate for the stage of recovery. EXTREMITIES:? normal and minimal edema Const: Vital Signs, click to edit/add: Vital Signs - 24 hr 11/09/23 12:07 11/09/23 16:24 11/09/23 19:32 Temperature 98.0 F 98.0 F 98.6 F Pulse Rate [Pulse Oximeter] 76 76 84 Respiratory Rate 16 16 Blood Pressure [Le ft Arm] 119/80 117/78 112/78 Pulse Oximetry 98 98 97 Oxygen Delivery Me thod Room Air Room Air Room Air 11/09/23 23:54 11/10/23 07:59 Temperature 97.8 F 97.6 F Pulse Rate [Pulse Oximeter] 70 74 Respiratory Rate 16 18 Blood Pressure [Le ft Arm] 118/74 109/75 Pulse Oximetry 98 96 Oxygen Delivery Me thod Room Air OB - DS: Summary Hospital Course Hospital Course: [] is a [] y.o. G [] P [] who was admitted [facility] for [].? She had a NVD [ section] that was [un]complicated [by]. The patient feels well.? The pain is well controlled with current medications.? She has no new complaints.? She is breast feeding and reports things are going [well]. the patient has done well.? Vitals have been stable.? She has remained afebrile.? Has a good appetite, is tolerating a general diet.? She is voiding without difficulty.? She is passing gas and has [not] had a bowel movement.? She is ambulating and denies any dizziness.? Has small amount of rubra lochia. She is planning [] for prevention.? ?? Problems: []? Peripartum Data delivery method: Vaginal Laceration description: None complications: none Infant Gender: Female Discharge Plan: Home Status at Discharge Overall status at discharge: patient is progressing back to baseline Time Spent with Patient Time attestation: Total time spent providing and/or coordinating discharge services: Time spent: Less than 30 minutes Discharge Plan Discharge Disposition: Home, Self-Care Date of Admission: 11/08/23 07:04 Attending Provider on Discharge: Marifer Lopez Primary Care Provider: Provider,Not a Local Condition: Stable Anticipated Discharge Date/Time: 11/10/23 12:00 Discharge Medications: New acetaminophen 500 mg Tablet 1,000 mg PO Q6H PRN (Reason: pain/fever) Qty: 60 0RF docusate sodium 100 mg Capsule 100 mg PO DAILY PRN (Reason: Constipation) Qty: 60 0RF ibuprofen 600 mg Tablet 600 mg PO Q6H PRNQty: 60 0RF Continued PNV 119-iron fum-folic acid 29 mg iron- 1 mg tablet 1 tab PO DAILY Discontinued docusate sodium [Colace] 100 mg capsule 100 mg PO QDAY famotidine [Pepcid] 20 mg tablet 20 mg PO QDAY calcium carbonate [Tums] 200 mg calcium (500 mg) tablet,chewable 200 mg PO TID PRN Discharge Orders: Discharge Order (Routine); Ordered 11/10/23 Ordered By: Marifer Lopez Consulting provider completed their portion of the discharge: Yes Patient Education: OB Over the Counter Medication Information, OB Vaginal/Bottle Feeding, OB Vaginal/Breast Feeding Additional Instructions: Discharge instructions were reviewed with the patient including signs and symptoms of infection and home going medications Nothing vaginally for 6 weeks: no tampons or intercourse Off Work or School for 6 weeks Symptoms to report to doctor: * Bleeding that saturates more than one pad per hour * Passing clots larger than the size of a golf ball * Pain not relieved by prescribed medication * Fever above 100.4 degrees Fahrenheit * A foul vaginal odor * Difficulty in emotions, mood, and functions * Thoughts of hurting yourself and/or * Painful, reddened area in your breast * Any drainage, redness, or tenderness in your IV/epidural site * Severe headache that doesn't improve after taking medications * Changes in vision, including temporary loss of vision, blurred vision, and/or light sensitivity * Upper abdominal pain (usually under ribs on the right side) * Decrease in urination or painful, frequent urinating * Chest pain * Shortness of breath * Tenderness or pain with redness and/swelling in the calf(s) of your leg 2-week visit: discuss feeding concerns, review control options and screen for anxiety/depression. 6-week visit for an annual exam. consultation services are available to all mothers and babies for the first year after delivery.? To make an appointment, please call [phone]. Activity Level: Activity as Tolerated Discharge Diet: Regular Follow Up Appointments: [facility] [Provider Group] Forms: [employer] Info Instructions
[2023-11-10] MEDS: DOCUSATE SODIUM 100 MG CAPSULE PO (08:49)
[2023-11-10 11:45] VITALS: BP 113/79; PULSE 78; TEMP 36.6; O2SAT 96
[2023-11-10 23:54] LABS: Rapid Plasma Reagin (RPR) Non Reactive (Non Reactive)
== END 2023-11-10 12:20 | disposition home or self-care (01) | DRG 560 ==
PROVIDERS: Admitting Provider Advanced Practice Midwife; Visit Provider Advanced Practice Midwife
DX: O48.0 Post-term pregnancy (principal); Z3A.41 41 weeks gestation of pregnancy; O99.02 Anemia complicating childbirth; O26.03 Excessive weight gain in pregnancy, third trimester; Z37.0 Single live birth; O99.013 Anemia complicating pregnancy, third trimester; D50.9 Iron deficiency anemia, unspecified; R03.0 Elevated blood-pressure reading, without diagnosis of hypertension
CPT/HCPCS: 01967; 36415; 59200; 82565; 82570; 84156; 84450; 84460; 84520; 85018; 85025; 85027; 86592; 86850; 86900; 86901; 88307; A9270; J0665; J2371; J2795; J7120

== ENCOUNTER 2023-11-20 12:10 | Outpatient (CLI) | payer BC, SELFPAY ==
--- NOTE | 2023-11-20 13:58 | P.LACCB_ITS ---
Consult Note - Mom Date of Visit Date of visit: 11/20/23 multi site leasing consultant: Laura Fung Visit Code: Visit Patient's Information Phone number: [phone] Para: 2 Allergies No Known Drug Allergies Allergy (Verified 11/08/23 07:47) Mother's Medical History: Medical History (Updated 11/13/23 @ 00:03 by Background Heidi) No significant past medical history Work Plans: Return to work beginning of February, in about 3 months Delivery Information Delivery type: Vaginal Gestational Age: AGA Discharge Weight: 3.912 kg Baby's Information Baby's Age at Visit: 11 days Baby's Provider or Clinic: [facility] Jaundice: No Reason for Consult Reason for Consult: Mom is strictly pumping and bottling; wants to review plan and be sure she is on the right path for milk production. She tried her first, didn't every get a good latch and her milk supply tanked around 3 weeks of age so hoping this plan will work better for her. Also wants to be measured for flange size for pumps. Mom is pumping every 2-3 hours during the day and one 4 hr stretch at night. She is getting between 3-6 oz of milk per pump. She has both a Spectra pump and an SugarCRM stride - she gets more with the Spectra. She is using a 24 mm flange and reports this is comfortable. Past Experience Past Experience: Yes Current Frequency of Day Feedings: Pumping every 2-3 hours for 30 min; 2-3 power hour pumps/day Both Breasts: Yes Goals: as long as possible Pumping Pumping: Yes Quantity Pumped: 3-6 oz depending on time of day Supplementing Formula Supplement: No Baby Elimination Number of Wet Diapers a Day: 6 or more Number of BM a Day: 6 or more Breast/Nipple Condition Engorgement: No Maternal Nipple Condition - Left: Common Nipple Maternal Nipple Condition - Right: Common Nipple Sore Nipples: No Onsite Pre-Nursing Left Nipple: Within Normal Limits Pre-Nursing Right Nipple: Within Normal Limits Assessments/Interventions Assessments/Interventions: Currently with adequate milk supply for baby; reports she is starting to get pumped a little ahead and can almost start to freeze some. Recommend she use the Spectra pump as much as possible as she reports she gets the most milk with that pump. Recommend she track her 24 hour milk pump totals; as she is able to go from every 2 hours to 3 hours her totals in 24 hours will guide her if this changes her overall volumes or not. Pumping alone can lead to overproduction - discussed if this begins to happen to call me to discuss current plan and see if it needs to be altered to give baby enough milk, but also keep Arthur comfortable. Measured for flange size - R nipple is 19mm, so flange size is 23mm; L nipple is 18mm so 22 mm flange size. She is currently using a 24 mm flange and it is comfortable. She may continue to use this if comfortable; but has the information if needs to change due to discomfort or poor milk collection when pumping. Mom's questions answered. Time spent reviewing hospital course as well as time patient: 45 minutes Meds Home Medications and Allergies Home Medications ?Medication ?Instructions ?Recorded ?Confirmed ?Type vitamins no.119-iron 1 tab PO DAILY 04/19/23 11/08/23 History fumarate 29 mg-folic acid 1 mg tablet Allergies Allergy/AdvReac Type Severity Reaction Status Date / Time No Known Drug Allergies Allergy Verified 11/08/23 07:47
== END 2023-11-20 12:11 | disposition home or self-care (01) ==
LOC: OB LAC 12:11
PROVIDERS: Visit Provider Obstetrics & Gynecology
DX: Z39.1 Encounter for care and examination of lactating mother (principal)
CPT/HCPCS: G0463

== ENCOUNTER 2024-07-07 12:45 | Outpatient (CLI) | payer BC, SELFPAY ==
--- NOTE | 2024-07-07 13:00 | CRLHL7_ITS ---
For Patients: As a result of the Century Cures Act, medical imaging exams and procedure reports are released immediately into your electronic medical record. You may view this report before your referring provider. If you have questions, please contact your health care provider. INDICATION: First trimester dating and viability. TECHNIQUE: Ultrasound OB pelvis transabdominal and transvaginal. Real-time mathias-scale imaging of the pelvis was performed. COMPARISON: None. FINDINGS: Intrauterine gestation: Single. heart activity: 176 beats per minute [place]-rump length: 1.7 cm. Mean gestational sac diameter: 3.7 cm Estimated ultrasound age: 8 weeks 1 day. DOROTHY by ultrasound: 02/15/2025. Yolk sac: Normal. Perigestational hemorrhage: None. Ovaries and adnexa: Normal in size. Left corpus luteal cyst measuring up to 2 cm. Suspicious pelvic fluid collections: None. IMPRESSION: Single viable intrauterine measuring 8 weeks 1 day by ultrasound with DOROTHY of 02/15/2025. No abnormalities seen. Dictated by Rosenda Garcia MD @ 07/08/2024 12:28:39 PM (Electronically Signed)
== END 2024-07-07 12:46 | disposition home or self-care (01) ==
LOC: US 12:46
PROVIDERS: Visit Provider Advanced Practice Midwife
DX: Z34.91 Encounter for supervision of normal pregnancy, unspecified, first trimester (principal); Z3A.08 8 weeks gestation of pregnancy
CPT/HCPCS: 76817; 83021; 86703; 86706; 86803; 86850; 86900; 86901; 87340

== ENCOUNTER 2024-07-07 13:56 | Outpatient (CLI) | payer BC, SELFPAY | END 2024-07-07 13:57 | disposition home or self-care (01) | PROVIDERS: Visit Provider Advanced Practice Midwife | DX: Z34.91 Encounter for supervision of normal pregnancy, unspecified, first trimester (principal); Z3A.08 8 weeks gestation of pregnancy | CPT/HCPCS: 83020; 83021; 85660; 86592; 86593; 86703; 86704; 86706; 86762; 86780; 86787; 86803; 86850; 86900; 86901; 87086; 87340 ==

== ENCOUNTER 2024-08-07 13:04 | Outpatient (CLI) | payer BC, SELFPAY | END 2024-08-07 13:05 | disposition home or self-care (01) | PROVIDERS: Visit Provider Advanced Practice Midwife | DX: Z34.81 Encounter for supervision of other normal pregnancy, first trimester (principal); A53.0 Latent syphilis, unspecified as early or late | CPT/HCPCS: 82565; 82570; 84156; 84450; 84460; 84520; 86592 ==

== ENCOUNTER 2024-09-04 11:30 | Outpatient (RCR) | payer BC, SELFPAY | END 2024-12-16 15:14 | disposition home or self-care (01) | PROVIDERS: PCP Advanced Practice Midwife; Visit Provider Advanced Practice Midwife | DX: M62.08 Separation of muscle (nontraumatic), other site (principal); N81.89 Other female genital prolapse; M54.50 Low back pain, unspecified; M79.661 Pain in right lower leg; M79.662 Pain in left lower leg; Z51.89 Encounter for other specified aftercare | CPT/HCPCS: 81511; 97110; 97112; 97140; 97161; 97530 ==

== ENCOUNTER 2024-10-02 12:04 | Outpatient (CLI) | payer BC, SELFPAY ==
--- NOTE | 2024-10-02 12:15 | CRLHL7_ITS ---
For Patients: As a result of the 21st Century Cures Act, medical imaging exams and procedure reports are released immediately into your electronic medical record. You may view this report before your referring provider. If you have questions, please contact your health care provider. OB ULTRASOUND SURVEY DOROTHY by US: 02/15/2025. GA: 20 w, 4 d. INDICATION: anatomy survey. Supervision of high risk . TECHNIQUE: Real time mathias scale imaging of the fetus was performed. Evaluate anatomy. Transabdominal and Transvaginal. position: Vertex, Transverse, Multiple positions. Head to maternal left. Cervix: Visualized. Technique: Transabdominal and transvaginal. Length of closed cervix: 5.4 cm. Placenta/cord: Posterior. Technique: Transabdominal and transvaginal. Placenta tip to internal os: 1.3 cm. Umbilical Cord: 3-vessel cord. Placenta insertion: Central. Amniotic Fluid: 6.6 cm SDP (greater than/equal to: 2- less than 8 cm). SURVEY: Observed Structures. Calvarium/Spine: Cerebellum: 2.2 cm, 21 w 5 d. Cisterna Magna: 4.4 mm. Nuchal Fold: 4.3 mm. Lateral Ventricle: 7.6 mm. CSP: Yes. Midline Falx: Yes. Choroid Plexus: Yes. Spine: Yes. Abdomen: Stomach: Yes. Abd Cord Insertion: Yes. Urinary Bladder: Yes. Kidneys: Yes. Diaphragm: Yes. Face: Nose/lips: Yes. Orbital view: Yes. Profile: Yes. Limbs: Upper Extremities: Yes. Lower Extremities: Yes. Hands: Yes. Feet: Yes. Vascular: 4-Chamber Heart: Yes. LVOT: Yes. RVOT: Yes. 3VV: Yes. No. 3VTV: Yes. No. BPD: 4.9 cm. 20 w, 6 d, 61st percent. HC: 18.6 cm. 21 w, 0 d, 59th percent. AC: 15.7 cm. 20 w, 6 d, 53rd percent. FL: 3.4 cm. 20 w, 4 d, 43rd percent. FL/AC ratio: 21.53 percent. HC/AC ratio: 1.19. heart rate: 142 bpm. age by this US: 21 w, 0 days. DOROTHY by this US: 02/12/2025. EFW: 454.5 g. Weight: 0 lbs, 13 oz. Percentile by DOROTHY: 56th percent. TECH COMMENTS: Nose and lips not well visualized. IMPRESSION: 1. Transvaginal imaging of the cervix and placental edge performed to better evaluate the anatomy. The cervix is closed and measures 5.4 cm. An accessory placental lobe is located posteriorly with the placental edge 1.3 cm from the internal cervical os. The main placenta is located anteriorly and the placental edge is 3.0 cm from the internal cervical os. 2. Incomplete visualization of the nose and lips. Short-term follow-up recommended. Remainder of the anatomic survey normal. 3. Placenta floyd appears to be present which measures 6.5 x 2.4 cm which is near the placental cord insertion. 4. Concordance of clinical and sonographic dating. Jamari Medina M.D. Diagnostic Radiologist [email or web address] DW/Dictated by: Jamari Medina MD @ 10/03/2024 9:19:00 PM (Electronically Signed)
--- OUTSIDE RECORDS SUMMARY | 2024-10-03 00:52 | XMS_ITS | Clinical Summary ---
Author Organization [facility] Address [address] [place] [address] Care Team Providers Care Hotel Maintenance Worker Name Role Phone Karol Cartagena MD Primary Care Provider Kyung overton Allergies No known active allergies Medications Magnesium 200 mg oral Tab Take 2 tablets by mouth at bedtime. Active famotidine (PEPCID) 10 mg oral tablet Take 10 mg by mouth once daily. Active calcium carbonate (TUMS) 200 mg calcium (500 mg) oral chew tab Chew 1 tablet twice a day. Active vit 93/iron fum/folic ( FORMULA ORAL) Take 1 tablet by mouth. Active Active Problems Problem Noted Date Diagnosed Date Supervision of normal 02/13/2021 Social History Tobacco Use Types Packs/Day Years Used Date Smoking Tobacco: Never Smokeless Tobacco: Never Tobacco Cessation:Counseling Given: Not Answered [place] Depression Scale Answer Date Recorded [place] Depression Scale Total 0 02/14/2021 The thought of harming myself has occurred to me . Never 02/14/2021 Comments No Sex and Gender Information Value Date Recorded Sex Assigned at Female 01/11/2021 5:40 PM CDT Legal Sex Female 11:04 AM CDT Gender Identity Female 01/11/2021 5:40 PM CDT Sexual Orientation Straight 01/11/2021 5: 40 PM CDT Last Filed Vital Signs Vital Sign Reading Time Taken Comments Blood Pressure 122/78 04/18/2022 10:06 AM LEAKAGE TESTER Pulse 74 04/18/2022 10:06 AM LEAKAGE TESTER Temperature 36.4 C (97.5 F) 04/18/2022 10:06 AM LEAKAGE TESTER Respiratory Rate 16 04/18/2022 10:0 6 AM LEAKAGE TESTER Oxygen Saturation 98% 04/18/2022 10: 06 AM LEAKAGE TESTER Inhaled Oxygen Concentration - - Weight 119.4 kg (263 lb 3.2 oz) 02/13/2021 3:42 AM CDT Height 172.7 cm (5' 8) 02/13/2021 3:42 AM CDT Body Mass Index 40.02 02/13/2021 3:42 AM CDT Plan of Treatment Health Maintenance Due Date Last Done Comments Hepatitis C Screening 1990 Anxiety Screening (REBEKA-2) 01/28/1992 Depression Assessment (PHQ-2) 01/28/1992 Pap Smear 04/26/2019 04/26/2016, 02/02/2015 COVID-19 Vaccine (2023- 5 season) 2023 11/10/2020, 10/13/2020 Influenza Vaccine (Season Ended) 2024 01/04/2021 Adult Tetanus Booster 11/23/2030 11/23/2020 RSV Vaccines (1 - 1-dose 75+ series) 2066 Meningococcal B Vaccine Aged Out No l onger eligible based on patient's age to complete this topic Pneumococcal Vaccine Aged Out No long er eligible based on patient's age to complete this topic Procedures Procedure Name Priority Date/Time Associated Diagnosis Comments PAP WITH HPV-HR REFLEX Routine 04/26/2016 10:27 AM LEAKAGE TESTER Encounter for gynecological examination without abnormal finding from Last 3 Months or Most Recently Relevant to Health Maintenance Results * (ABNORMAL) PAP WITH HPV-HR REFLEX (04/26/2016 10:27 AM LEAKAGE TESTER) PAP TEST (TRAFFIC COORDINATOR CYTOLOGY) Atypical squamous cells of undetermined significance.(A ) 05/07/2016 1:09 PM LEAKAGE TESTER [facility] Comment: [facility] [address] [place] [phone] CYTOLOGY REPORT Patient Name: ARTHUR CONTRERAS Specimen No: [id number] Location: [facility] Age: 26 Sex: F Cici. Date: 04/26/2016 Med. Rec. #: [id number] : 1990 Received: 04/26/2016 Physician(s): Elaine BELTRAN Encounter No. [id number] Reported: 05/07/2016 SOURCE OF SPECIMEN A: CERVICAL-THIN PREP (HPV REFLEX) Automotive Center Manager Screening CLINICAL HISTORY Date of Last Menstrual Period: 04/18/2016 SPECIMEN ADEQUACY Satisfactory for evaluation. Endocervical/transformation zone component present. INTERPRETATION Atypical squamous cells of undetermined significance. Electronically Signed Out Dk Mckeon MD CPT Code(s): A: 34967., 09866 This specimen was screened by the ThinPrep Imaging System prior to manual review by a property condition assessor and/or pathologist. The Pap Test is a screening test and has an irreducible false-negative rate. Routine periodic testing and follow-up of unexplained clinical signs and symptoms are important to minimize the consequences of false-negative Pap tests. Lillie et al. 2012 Updated Consensus Guidelines for the Management of Abnormal Cervical Cancer Screening Tests and Cancer Precursors. J Low Genit Tract Dis 2013; 17 (5): S2-S27 Site-Microbiolog y (Cervical - Thin Prep) 04/26/2016 10:27 AM LEAKAGE TESTER 04/26/2016 3:20 PM LEAKAGE TESTER Narrative NMR PATHOLOGY - 05/07/2016 1:09 PM LEAKAGE TESTER Reflex testing will be reported separately. us Elaine Sousa PA-C PATHOLOGY/CYTOLOGY ORDE JANIE Final Result [facility] PATHOLOGY [facility] [address] [place] [address] from Last 3 Months or Most Recently Relevant to Health Maintenance Advance Directives For more information, please contact: [phone] * Full Code (Latest Code Status on File) Date Activated Date Inactivated Comments 02/13/2021 7:38 AM 02/14/2021 8:26 PM Question Answer Comments How was code status determined? Physician Determ ined Care Teams Hotel Maintenance Worker Relationship Specialty Start Date End Date Karol Cartagena MD PCP - General Obstetrics/Gynecology 01/27/21
--- OUTSIDE RECORDS SUMMARY | 2024-10-03 00:52 | XMS_ITS | Referral Summary ---
Author Organization [facility] Address [address] [place] [address] Care Team Providers Care Bisque Ware Dipper Name Role Phone Kaorl Cartagena MD Primary Care Provider Kyung overton [...] Tobacco: Never Tobacco Cessation:Counseling Given: Not Answered [place] Depression Scale Answer Date Recorded [place] Depression Scale Total 0 02/14/2021 The thought [...] Comments Blood Pressure 122/78 04/18/2022 10:06 AM PREVENTION SPECIALIST Pulse 74 04/18/2022 10:06 AM PREVENTION SPECIALIST Temperature 36.4 C (97.5 F) 04/18/2022 10:06 AM PREVENTION SPECIALIST Respiratory Rate 16 04/18/2022 10:0 6 AM PREVENTION SPECIALIST Oxygen Saturation 98% 04/18/2022 10: 06 AM PREVENTION SPECIALIST Inhaled Oxygen Concentration - - Weight 119.4 kg (263 lb 3.2 oz) 02/13/2021 3:42 AM CDT Height 172.7 cm (5' 8) 02/13/2021 3:42 AM CDT Body Mass Index 40.02 02/13/2021 3:42 AM CDT Plan of Treatment Not on file Procedures Procedure Name Priority Date/Time Associated Diagnosis Comments PAP WITH HPV-HR REFLEX Routine 04/26/2016 10:27 AM PREVENTION SPECIALIST Encounter for gynecological examination without abnormal finding from Last 3 Months or Most Recently Relevant to Health Maintenance Results * (ABNORMAL) PAP WITH HPV-HR REFLEX (04/26/2016 10:27 AM PREVENTION SPECIALIST) PAP TEST (SOLUTIONS ARCHITECT CYTOLOGY) Atypical squamous cells of undetermined significance.(A ) 05/07/2016 1:09 PM PREVENTION SPECIALIST [facility] Comment: [facility] [address] [place] [phone] CYTOLOGY REPORT Patient Name: ARTHUR CONTRERAS Specimen No: [id number] Location: [facility] Age: 26 Sex: F Cici. Date: 04/26/2016 Med. Rec. #: [id number] : 1990 Received: 04/26/2016 Physician(s): Elaine BELTRAN Encounter No. [id number] Reported: 05/07/2016 SOURCE OF SPECIMEN A: CERVICAL-THIN PREP (HPV REFLEX) Information Technology Data Analyst Screening CLINICAL HISTORY Date of Last Menstrual Period: 04/18/2016 SPECIMEN ADEQUACY Satisfactory for evaluation. Endocervical/transformation zone component present. INTERPRETATION Atypical squamous cells of undetermined significance. Electronically Signed Out Dk Mckeon MD CPT Code(s): A: 59378., 63483 This specimen was screened by the ThinPrep Imaging System prior to manual review by a drafter chief design and/or pathologist. The Pap Test is a [...] (Cervical - Thin Prep) 04/26/2016 10:27 AM PREVENTION SPECIALIST 04/26/2016 3:20 PM PREVENTION SPECIALIST Narrative NMR PATHOLOGY - 05/07/2016 1:09 PM PREVENTION SPECIALIST Reflex testing will be reported separately. Elaine Sousa PA-C PATHOLOGY/CYTOLOGY ORDE JANIE Final Result [facility] PATHOLOGY [facility] [address] [place] [address] from Last 3 Months or Most Recently Relevant to Health Maintenance Advance Directives For more information, please contact: [phone] * Full Code (Latest Code Status on File) Date Activated Date Inactivated Comments 02/13/2021 7:38 AM 02/14/2021 8:26 PM Question Answer Comments How was code status determined? Physician Determ ined Care Teams Bisque Ware Dipper Relationship Specialty Start Date End Date Karol Cartagena MD PCP - General Obstetrics/Gynecology 01/27/21
--- OUTSIDE RECORDS SUMMARY | 2024-10-03 00:52 | XMS_ITS | Clinical Summary ---
Author Organization [facility] Address [address] [place] [address] Care Team Providers Care Master At Arms Name Role Phone No Ref-Primary, Physician Primary Care Provider Medications norethindrone-et hinyl estradiol (05/04) 1-20 MG-MCG per tablet Take 1 tablet by mouth daily Active ondansetron (ZOFRAN) 4 MG tabletIndication s:Vomiting and diarrhea Take 1 tablet (4 mg) by mouth every 8 hours as needed 18 tablet 08/20/2017 Active Active Problems No known active problems Social History Tobacco Use Types Packs/Day Years Used Date Smoking Tobacco: Never Smokeless Tobacco: Never Comments No Sex and Gender Information Value Date Recorded Sex Assigned at Not on file Legal Sex Female 4:24 PM CDT Gender Identity Not on file Sexual Orientation Not on file Last Filed Vital Signs Vital Sign Reading Time Taken Comments Blood Pressure 120/70 08/20/2017 4:45 PM CDT Pulse 86 08/20/2017 4:45 PM CDT Temperature 36.4 C (97.6 F) 08/20/2017 4:45 PM CDT Respiratory Rate - - Oxygen Saturation 98% 08/20/2017 4:45 PM CDT Inhaled Oxygen Concentration - - Weight 82.7 kg (182 lb 6 oz) 08/20/2017 4:45 PM CDT Height - - Body Mass Index - - Plan of Treatment Not on file Insurance [employer] Care Teams Master At Arms Relationship Specialty Start Date End Date No Ref-Primary, Physician PCP - General 08/20/17
--- OUTSIDE RECORDS SUMMARY | 2024-10-03 00:52 | XMS_ITS | Clinical Summary ---
Author Organization [facility] Address [facility] [place] [address] Care Team Providers Care Nut Grinder Name Role Phone Pcp, No Primary Care Provider Unavailabl e Allergies No known active allergies Medications norethindrone acet-ethinyl est, 1.5-30 mg-mcg, (MICROGESTIN 1.5/30) 1.5-30 mg-mcg tab tablet Take 1 tablet by mouth once daily. 1 Package 04/21/2016 Active pantoprazole (PROTONIX) 40 mg delayed-release tabletIndication s:Reflux esophagitis Take 1 tablet by mouth once daily. 90 tablet 11/28/2018 Active ranitidine (ZANTAC) 150 mg tabletIndication s:Reflux esophagitis Take 1 tablet by mouth 2 times daily. 180 tablet 11/28/2018 Active sucralfate (CARAFATE) 1 gram tabletIndication s:Reflux esophagitis Take 1 tablet by mouth 4 times daily before meals and at bedtime. 120 tablet 1 11/28/2018 Active Active Problems Problem Noted Date Diagnosed Date Reflux esophagitis 11/28/2018 Family History Medical History Relation Name Comments No Known Problems Father No Known Problems Mother Relation Name Status Comments Father Mother Social History Tobacco Use Types Packs/Day Years Used Date Smoking Tobacco: Never Smokeless Tobacco: Never Comments No Sex and Gender Information Value Date Recorded Sex Assigned at Not on file Legal Sex Female 9:46 AM DRILLER HAND Gender Identity Not on file Sexual Orientation Not on file Obstetrics History Last Filed Vital Signs Vital Sign Reading Time Taken Comments Blood Pressure 118/78 11/28/2018 2:54 PM CDT Pulse 65 11/28/2018 2:54 PM CDT Temperature 37.1 C (98.7 F) 04/21/2016 10:07 AM DRILLER HAND Respiratory Rate 12 04/21/2016 10:07 AM DRILLER HAND Oxygen Saturation 100% 11/28/2018 2:54 PM CDT Inhaled Oxygen Concentration - - Weight 92.4 kg (203 lb 9.6 oz) 11/28/2018 2:54 P M CDT Height - - Body Mass Index - - Plan of Treatment Health Maintenance Due Date Last Done Comments Tdap 2002 Depression screening for age 12+ 2003 HIV for age 15-65 2006 BMI (ht and wt on same day) for age 18+ 2009 Hepatitis C screening for ag e 18-79 2009 Hepatitis B series for 19+ ( 1 of 3 - 19+ 3-dose series) 2010 Tetanus booster 2011 COVID-19 vaccine series (2023- season) 2023 Influenza Vaccine (Season Ended) 2024 Pap test for age 21-65 03/22/2026 , 03/22/2023 Pneumococcal series for age 6-49 Aged Out No longer eligible b ased on patient's age to complete this topic Procedures Procedure Name Priority Date/Time Associated Diagnosis Comments HPV HIGH RISK Routine 03/22/2023 11:05 AM DRILLER HAND from Last 3 Months or Most Recently Relevant to Health Maintenance Results * HPV HIGH RISK (03/22/2023 11:05 AM DRILLER HAND) TYPE 16 Negative Negative 03/28/2023 11:15 AM DRILLER HAND [facility] [employer] [facility] TYPE 18 Negative Negative 03/28/2023 11:15 AM DRILLER HAND [facility] [facility] OTHER HIGH RISK TYPES Negative Negative 03/28/2023 11:15 AM DRILLER HAND [facility] TRAL LABORAT[facility] Other (Cervical) 03/22/2023 11:05 AM DRILLER HAND 03/26/2023 11:46 AM DRILLER HAND Narrative [facility] - 03/28/2023 11:15 AM DRILLER HAND HPV types 16, 18, 31, 33, 35, 39, 45, 51, 52, 56, 58, 59, 66 and 68 DNA were undetectable or below the pre-set threshold. Methodology: Martín Joselyn 4800 HPV Test us Deirdre Krystal CNM MICROBIOLOGY Final Result [facility] [address] [place] [address], from Last 3 Months or Most Recently Relevant to Health Maintenance Insurance [facility] Care Teams Nut Grinder Relationship Specialty Start Date End Date Pcp, No . PCP - General 04/21/16
== END 2024-10-02 12:05 | disposition home or self-care (01) ==
LOC: US 12:04
PROVIDERS: Visit Provider Midwife
DX: O09.92 Supervision of high risk pregnancy, unspecified, second trimester (principal); O35.AXX0 Maternal care for other (suspected) fetal abnormality and damage, fetal facial anomalies, not applicable or unspecified; Z3A.21 21 weeks gestation of pregnancy
CPT/HCPCS: 76805; 76817

== ENCOUNTER 2024-10-30 09:00 | Outpatient (CLI) | payer BC, SELFPAY ==
--- NOTE | 2024-10-30 09:15 | CRLHL7_ITS ---
For Patients: As a result of the Century Cures Act, medical imaging exams and procedure reports are released immediately into your electronic medical record. You may view this report before your referring provider. If you have questions, please contact your health care provider. OB ULTRASOUND SURVEY DOROTHY by US: 02/15/2025. GA: 24 w, 4 d. INDICATION: Follow-up missing anatomy. Check placental floyd and accessory lobe. TECHNIQUE: Real time grayscale imaging of the fetus was performed. Transabdominal. CERVIX: Visualized. TA Measurement: 4.1 cm. POSITIONING: Breech. AMNIOTIC FLUID: 7.0 cm. SDP (N: greater than 2 x 1 cm) PLACENTA: Technique: Transabdominal. PLACENTA POSITION: Anterior. DOPPLER: heart rate: 154 bpm. IMPRESSION: 1. Normal nose and lips. 2. Placental floyd measures 3.9 x 2.3 x 3.7 cm, decreased in size from prior. 3. Placenta appears to be anterior on today???s exam. An accessory lobe is not appreciated. Jamari Medina M.D. Diagnostic Radiologist [email or web address] tello/Dictated by: Jamari Medina MD @ 10/30/2024 10:03:00 AM (Electronically Signed)
== END 2024-10-30 09:01 | disposition home or self-care (01) ==
LOC: US 09:01
PROVIDERS: Visit Provider Advanced Practice Midwife
DX: Z36.2 Encounter for other antenatal screening follow-up (principal); Z3A.24 24 weeks gestation of pregnancy
CPT/HCPCS: 76816

== ENCOUNTER 2024-11-19 16:43 | Emergency (ER) | payer BC, SELFPAY ==
--- OUTSIDE RECORDS SUMMARY | 2024-11-19 16:45 | XMS_ITS | Clinical Summary ---
Author Organization [facility] Address [address] [place] [address] Care Team Providers Care Cell Repairer Name Role Phone Karol Cartagena MD Primary [...] Tobacco: Never Tobacco Cessation:Counseling Given: Not Answered [place] Depression Scale Answer Date Recorded [place] Depression Scale Total 0 02/14/2021 The thought [...] Comments Blood Pressure 122/78 04/18/2022 10:06 AM CUSTOMER SUCCESS INTERN Pulse 74 04/18/2022 10:06 AM CUSTOMER SUCCESS INTERN Temperature 36.4 C (97.5 F) 04/18/2022 10:06 AM CUSTOMER SUCCESS INTERN Respiratory Rate 16 04/18/2022 10:0 6 AM CUSTOMER SUCCESS INTERN Oxygen Saturation 98% 04/18/2022 10: 06 AM CUSTOMER SUCCESS INTERN Inhaled Oxygen Concentration - - Weight 119.4 kg (263 lb 3.2 oz) 02/13/2021 3:42 AM CDT Height 172.7 cm (5' 8) 02/13/2021 3:42 AM CDT Body Mass Index 40.02 02/13/2021 3:42 AM CDT Plan of Treatment Health Maintenance Due Date Last Done Comments Hepatitis C Screening 1990 Anxiety Screening (REBEKA-2) 01/28/1992 Depression Assessment (PHQ-2) 01/28/1992 Pap Smear 04/26/2019 04/26/2016, 02/02/2015 COVID-19 Vaccine (2023-2 5 season) 2023 11/10/2020, 10/13/2020 Influenza Vaccine (#1) 2024 01/04/2021 Adult Tetanus Booster 11/23/2030 11/23/2020 [...] WITH HPV-HR REFLEX Routine 04/26/2016 10:27 AM CUSTOMER SUCCESS INTERN Encounter for gynecological examination without abnormal finding from Last 3 Months or Most Recently Relevant to Health Maintenance Results * (ABNORMAL) PAP WITH HPV-HR REFLEX (04/26/2016 10:27 AM CUSTOMER SUCCESS INTERN) PAP TEST (VESSEL MANAGER CYTOLOGY) Atypical squamous cells of undetermined significance.(A ) 05/07/2016 1:09 PM CUSTOMER SUCCESS INTERN [facility] Comment: [facility] Surgical Pathology Laboratory [address] [place] [phone] CYTOLOGY REPORT Patient Name: ARTHUR CONTRERAS Specimen No: [id number] Location: [facility] Age: 26 Sex: F Cici. Date: 04/26/2016 Med. Rec. #: [id number] : 1990 Received: 04/26/2016 Physician(s): Elaine BELTRAN Encounter No. [id number] Reported: 05/07/2016 SOURCE OF SPECIMEN A: CERVICAL-THIN PREP (HPV REFLEX) Tactical Debriefer Screening CLINICAL HISTORY Date of Last Menstrual Period: 04/18/2016 SPECIMEN ADEQUACY Satisfactory for evaluation. Endocervical/transformation zone component present. INTERPRETATION Atypical squamous cells of undetermined significance. Electronically Signed Out Dk Mckeon MD CPT Code(s): A: 73586., 41942 This specimen was screened by the ThinPrep Imaging System prior to manual review by a manager dental and/or pathologist. The Pap Test is a [...] (Cervical - Thin Prep) 04/26/2016 10:27 AM CUSTOMER SUCCESS INTERN 04/26/2016 3:20 PM CUSTOMER SUCCESS INTERN Narrative NMR PATHOLOGY - 05/07/2016 1:09 PM CUSTOMER SUCCESS INTERN Reflex testing will be reported separately. us Elaine Sousa PA-C PATHOLOGY/CYTOLOGY ORDE JANIE Final Result [facility] PATHOLOGY [facility] [address] [place] [address] from Last 3 Months or Most Recently Relevant to Health Maintenance Advance Directives For more information, please contact: [phone] * Full Code (Latest Code Status on File) Date Activated Date Inactivated Comments 02/13/2021 7:38 AM 02/14/2021 8:26 PM Question Answer Comments How was code status determined? Physician Determ ined Care Teams Cell Repairer Relationship Specialty Start Date End Date Karol Cartagena MD PCP - General Obstetrics/Gynecology 01/27/21
--- OUTSIDE RECORDS SUMMARY | 2024-11-19 16:45 | XMS_ITS | Clinical Summary ---
Author Organization [facility] Address [facility] [place] [address] Care Team Providers Care Potter Or Ceramic Artist Name Role Phone Pcp, No Primary Care [...] on file Legal Sex Female 9:46 AM FARM EQUIPMENT MECHANIC Gender Identity Not on file Sexual Orientation Not on file Obstetrics History Last Filed Vital Signs Vital Sign Reading Time Taken Comments Blood Pressure 118/78 11/28/2018 2:54 PM CDT Pulse 65 11/28/2018 2:54 PM CDT Temperature 37.1 C (98.7 F) 04/21/2016 10:07 AM FARM EQUIPMENT MECHANIC Respiratory Rate 12 04/21/2016 10:07 AM FARM EQUIPMENT MECHANIC Oxygen Saturation 100% 11/28/2018 2:54 PM CDT Inhaled Oxygen Concentration - - Weight 92.4 kg (203 lb 9.6 oz) 11/28/2018 2:54 P M CDT Height - - Body Mass Index - - Plan of Treatment Health Maintenance Due Date Last Done Comments Tetanus booster 2002 Depression screening for age 12+ 2003 HIV for age 15-65 2006 BMI (ht and wt on same day) for age 18+ 2009 Hepatitis C screening for ag e 18-79 2009 Hepatitis B series for 19+ ( 1 of 3 - 19+ 3-dose series) 2010 COVID-19 vaccine series (2023- season) 2023 Influenza Vaccine (#1) 2024 Pap test for age 21-65 03/22/2026 , 03/22/2023 Pneumococcal series for age 6-49 Aged Out No longer eligible b ased on patient's age to complete this topic Procedures Procedure Name Priority Date/Time Associated Diagnosis Comments HPV HIGH RISK Routine 03/22/2023 11:05 AM FARM EQUIPMENT MECHANIC from Last 3 Months or Most Recently Relevant to Health Maintenance Results * HPV HIGH RISK (03/22/2023 11:05 AM FARM EQUIPMENT MECHANIC) TYPE 16 Negative Negative 03/28/2023 11:15 AM FARM EQUIPMENT MECHANIC [facility] LAB[facility] TYPE 18 Negative Negative 03/28/2023 11:15 AM FARM EQUIPMENT MECHANIC [facility] TRAL LABORATORY OTHER HIGH RISK TYPES Negative Negative 03/28/2023 11:15 AM FARM EQUIPMENT MECHANIC [facility] Other (Cervical) 03/22/2023 11:05 AM FARM EQUIPMENT MECHANIC 03/26/2023 11:46 AM FARM EQUIPMENT MECHANIC Narrative [facility] - 03/28/2023 11:15 AM FARM EQUIPMENT MECHANIC HPV types 16, 18, 31, 33, 35, 39, 45, 51, 52, 56, 58, 59, 66 and 68 DNA were undetectable or below the pre-set threshold. Methodology: Martín Joselyn 4800 HPV Test us Deirdre NINAM MICROBIOLOGY Final Result [facility]AL LABORAT[facility] [address] [place] [address], from Last 3 Months or Most Recently Relevant to Health Maintenance Insurance [facility] Care Teams Potter Or Ceramic Artist Relationship Specialty Start Date End Date Pcp, No . PCP - General 04/21/16
--- OUTSIDE RECORDS SUMMARY | 2024-11-19 16:45 | XMS_ITS ---
Author Organization [facility] Source Produ ction (ClinicalSummary Clone) Address Unknown Care Team Providers Care Home Health Outreach Coordinator Name Role Phone Unavailable Primary Care Physician Unavailab le Results * [UNITY] ANEUPLOIDY NIPT Performed by: [facility] Value Range Date Fraction 10.9% 08/03/2024 10 :00 pm UTC Sex Chromosome Aneuploidy NOT DETECTED 10:00 pm UTC Monosomy X LOW RISK <1 in 10,000 2024 10:00 pm UTC Trisomy 13 LOW RISK <1 in 10,000 2024 10:00 pm UTC Trisomy 18 LOW RISK <1 in 10,000 2024 10:00 pm UTC Trisomy 21 LOW RISK <1 in 10,000 2024 10:00 pm UTC Sex FEMALE 08/03/2024 10:0 0 pm UTC Gestation AVITIA 08/04/19 10:00 pm UTC For detailed report, see PDF See PDF 08/03/2024 10:00 pm UTC 08/03/2024 10:0 0 pm UTC Social History Observation Value Start Date End Date
--- OUTSIDE RECORDS SUMMARY | 2024-11-19 16:45 | XMS_ITS | Clinical Summary ---
Author Organization [facility] Address [address] [place] [address] Care Team Providers Care Sorter Packer Name Role Phone No Ref-Primary, Physician Primary [...] on file Insurance [employer] Care Teams Sorter Packer Relationship Specialty Start Date End Date No Ref-Primary, Physician PCP - General 08/20/17
--- OUTSIDE RECORDS SUMMARY | 2024-11-19 16:45 | XMS_ITS ---
Author Organization [facility] Source Produ ction (ClinicalSummary Clone) Address Unknown Care Team Providers Care Substation Operator Apprentice Name Role Phone Unavailable Primary Care Physician Unavailab le Results * [UNITY] CARRIER SCREEN Performed by: [employer] Component Value Range Date Sickle Cell Disease/Beta-Thalassemia/Hemo globinopathies carrier screen NEGATIVE 08/10/2024 05:16 pm UTC Alpha-Thalassemia carrier screen NEGATIVE 08/10/2024 05:16 pm UTC Cystic Fibrosis carrier screen NEGATIVE 08/10/2024 05:16 pm UTC Spinal Muscular Atrophy carrier screen NEGATIVE 2 SMN1 copies, SNP not present 08/10/2024 05:16 pm [place] For detailed report, see PDF See PDF 08/10/2024 05:16 pm UTC 08/10/2024 05:1 6 pm [facility] Social History Observation Value Start Date End Date
[2024-11-19 16:58] VITALS: BP 126/84; PULSE 85; RESP 18; TEMP 36.2; O2SAT 99
[2024-11-19 17:05] LABS: Carboxyhemoglobin* 2.6 % (0.0-5.0)
--- NOTE | 2024-11-19 17:20 | ED.GENADULT ---
HPI - General Adult General Date Seen: 11/19/24 Chief complaint: Dizziness/Vertigo Stated complaint: carbon monoxide exposure, 27 wks preg Time Seen by Provider: 11/19/24 17:00 Source: patient Mode of arrival: ambulatory Limitations: no limitations History of Present Illness HPI narrative: Patient is a 34-year-old female who is currently 27 weeks presenting to the emergency department for dizziness, nausea, fatigue. She 1st noticed the dizziness after work yesterday after working the 9 hour shift. Woke up this morning this still feeling dizzy and fatigued. She thought it was just due to her but she does noted seemed worse than she has felt before. Was going about her day which got a call from her work saying that they have a carbon monoxide leak and everybody at work today was vomiting and elevated carbon monoxide levels. She was recommended by her OB to come in to be evaluated. Denies fevers, chills, chest pain, shortness of breath, abdominal pain, numbness. No other concerns noted. Related Data Home Medications ?Medication ?Instructions ?Recorded ?Confirmed acetaminophen 500 mg tablet 500 mg PO Q6H PRN 07/07/24 10/30/24 (Tylenol Extra Strength) vits 75-iron 28 mg-folic pkg PO 07/07/24 10/30/24 acid 800 mcg-omega-3 oral combo pack (One A Day Women's DHA) magnesium amino acid chelate 100 mg PO 10/02/24 10/30/24 mg tablet aspirin 81 mg chewable tablet 81 mg PO QDAY 10/30/24 10/30/24 atomoxetine 40 mg capsule 40 mg PO DAILY 11/19/24 11/19/24 Previous Rx's ?Medication ?Instructions ?Recorded escitalopram oxalate 10 mg tablet 10 mg PO QDAY #30 tabs 09/21/24 Allergies Allergy/AdvReac Type Severity Reaction Status Date / Time No Known Drug Allergies Allergy Verified 11/19/24 16:57 Review of Systems Status of ROS: Reports: 10 or more systems reviewed and unremarkable except as noted in History and below [facility] Medical History Hx of abnormal cervical Pap smear ?Z87.42 - Personal history of other diseases of the female genital tract (ICD-10) Gestational hypertension ?O13.9 - Gestational [-induced] hypertension without significant proteinuria, unspecified trimester (ICD-10) Surgical History [place] teeth extracted ?K08.409 - Partial loss of teeth, unspecified cause, unspecified class (ICD-10) Family History Mother Dementia Aphasia Paternal Grandfather Colon cancer Maternal Grandmother Myocardial infarction Social History Narrative: SOCIAL??? Education: Bachelors?? 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 Partner: : Meet??? Lives with: Benjamin and 2 daughters??? Pets: 2 dogs and rabbit??? Abuse: Denies Special Diet: Denies??? Ok with a blood transfusion: yes Culture or uatsdin beliefs: denies ?? RISK FACTORS??? Exercise Times/wk: None?? Hx of Depression and/or Anxiety/other mood disorder: Improved ??? Seat Belt Use: Routinely?? Smoking: Denies ??? Alcohol/day: Denies while ??? Caffeine: 1 per day ??? Drug Use: Denies ??? Chicken Pox: Yes as a child MRSA: Denies ?? REBEKA: 5 PHQ 9: 8??? What is your current living situation?: I presently have a place to live Problems where you live: no known problems In the past 12 months, utilities in danger of being shut off: no In past 12 months, lack of transportation kept you from medical appts, meetings, work, or getting things needed for daily living: no In the past 12 mos, have been you worried that your food would run out before you had money to buy more?: never true In the past 12 mos, the food you bought just didn't last and you didn't have money to buy more?: never true Smoking Status: Never smoker How often does anyone, including family, friends and others, physically hurt you: never How often does anyone, including family, friends and others, insult or talk down to you: never How often does anyone, including family, friends and others, threaten you with harm: never How often does anyone, including family, friends and others, scream or curse at you: never Exam Narrative: Exam Narrative: Const: Well-nourished, Well-developed, in no distress Eyes: PERRL, no conjunctival injection, and symmetrical lids HENT: Atraumatic external nose and ears. Moist mucous membranes. Neck: Symmetric, trachea midline, No thyromegaly. CVS: RRR, No murmurs or gallops. Peripheral pulses 2+ and equal in all extremities RESP: Unlabored respiratory effort. Clear to auscultation bilaterally. GI: Nontender/Nondistended, No rebound or guarding. MSK:Extremities w/o deformity, Normal Active ROM Skin: Warm, Dry. No rashes or lesions. Neuro: Normal Muscle tone, No focal neurological deficits. Psych: Awake, Alert, & Oriented x3. Appropriate mood and affect. Const: Vital Signs, click to edit/add: Vital Signs - 24 hr 11/19/24 16:58 Temperature 97.1 F L Pulse Rate [Pulse Oximeter] 85 Respiratory Rate 18 Blood Pressure [Ri ght Upper Arm] 126/84 Pulse Oximetry 99 Oxygen Delivery Me thod Room Air Course Vital Signs Vital signs: Initial Vital Signs Temperature 97.1 F L 11/19/24 16:58 Temperature Source Temporal Artery Scan 11/19/24 16:58 Pulse Rate 85 11/19/24 16:58 Respiratory Rate 18 11/19/24 16:58 Blood Pressure 126/84 11/19/24 16:58 Blood Pressure Mean 98 11/19/24 16:58 Blood Pressure Position Sitting 11/19/24 16:58 Pulse Oximetry 99 11/19/24 16:58 Oxygen Delivery Method Room Air 11/19/24 16:58 Vital Signs Temperature 97.1 F L 11/19/24 16:58 Pulse Rate 85 11/19/24 16:58 Respiratory Rate 18 11/19/24 16:58 Blood Pressure 126/84 11/19/24 16:58 Pulse Oximetry 99 11/19/24 16:58 Oxygen Delivery Method Room Air 11/19/24 16:58 Temperature 97.1 F L 11/19/24 16:58 Pulse Rate 85 11/19/24 16:58 Respiratory Rate 18 11/19/24 16:58 Blood Pressure 126/84 11/19/24 16:58 Pulse Oximetry 99 11/19/24 16:58 Oxygen Delivery Method Room Air 11/19/24 16:58 Medical Decision Making MDM Narrative Medical decision making narrative: Patient is a 34-year-old female presenting for concern of carbon monoxide exposure. Her exposure was 24 hours ago now and her carboxyhemoglobin is 2.6%. heart tones were done and were normal. Patient overall is feeling well feels like her symptoms are improving. Her symptoms very well could have been a combination of the carbon monoxide exposure and . She states the fetus is moving normally. I did speak to OB who states that considering the fetus is moving normally they do not believe nonstress testing is necessary. Patient will be discharged. Lab Data Labs: Lab Results 11/19/24 Range/Units 17:01 Carboxyhemoglobin 2.6 (0.0-5.0) % Discharge Plan Discharge Clinical Impression: Carbon monoxide exposure Patient Disposition: Home, Self-Care Condition: Stable Additional Instructions: If he notice any changes and the activity have close follow-up with your OB or midwives. Return to emergency department for new or worsening symptoms Prescriptions: No Action magnesium amino acid chelate 100 mg tablet PO acetaminophen [Tylenol Extra Strength] 500 mg tablet 500 mg PO Q6H PRN One A Day Women's DHA 28 mg iron- 800 mcg combo pack PO aspirin 81 mg tablet,chewable 81 mg PO QDAY atomoxetine 40 mg capsule 40 mg PO DAILY escitalopram oxalate 10 mg tablet 10 mg PO QDAY Qty: 30 2RF Follow Up/Referrals: Provider,Not a Local [Primary Care Provider, Family Practice] Stand Alone Forms: [employer] App Info Instructions
== END 2024-11-19 17:52 | disposition home or self-care (01) ==
PROVIDERS: Emergency Provider Student in an Organized Health Care Education/Training Program
DX: R42 Dizziness and giddiness (principal); T59.7X1A Toxic effect of carbon dioxide, accidental (unintentional), initial encounter; Z3A.27 27 weeks gestation of pregnancy
CPT/HCPCS: 82375; 99283

== ENCOUNTER 2024-11-27 09:05 | Outpatient (CLI) | payer BC, SELFPAY | END 2024-11-27 09:06 | disposition home or self-care (01) | LOC: NFLDREF 12-01 17:59 | PROVIDERS: Visit Provider Advanced Practice Midwife | DX: Z34.83 Encounter for supervision of other normal pregnancy, third trimester (principal) | CPT/HCPCS: 86592 ==

== ENCOUNTER 2024-12-21 12:08 | Outpatient (CLI) | payer BC, SELFPAY ==
--- NOTE | 2024-12-21 12:15 | CRLHL7_ITS ---
"For Patients: As a result of the Cures Act, medical imaging exams and procedure reports are released immediately into your electronic medical record. You may view this report before your referring provider. If you have questions, please contact your health care provider. OB ULTRASOUND FOLLOW-UP 12/21/2024 CLINICAL HISTORY: Obesity. COMPARISON: 10/20/2024, 10/02/2024, 07/07/2024. TECHNIQUE: Real time mathias scale imaging of the fetus was performed. Transabdominal imaging performed. FINDINGS: DOROTHY by US: 02/15/2025. GA: 32 weeks 0 days. Gestation: Single. Cervix: Visualized. TA measurement: 5.2 cm. Positioning: Vertex. Amniotic Fluid: 7.5 cm SDP. Placenta: Technique: TA. Placenta Position: Anterior. Dopplers: Heart Rate: 132 bpm. BIOMETRY BPD: 8.2 cm, 32 weeks 6 days. 66.6% HC: 30.4 cm, 33 weeks 6 days. 61.8% AC: 29.4 cm, 33 weeks 3 days. 85.8% FL: 6.3 cm, 32 weeks 4 days. 55.0% FL/AC Ratio: 21.43% HC/AC Ratio: 1.03. EFW: 2138 grams. 4 lb 11 oz. Age by this US: 33 weeks 1 day. DOROTHY by this US: 02/07/2025. Percentile by DOROTHY: 77.2% IMPRESSION: 1. Sonographic gestational age 33 weeks 1 day and sonographic due date 02/07/2025. Sonographic age is 8 days ahead of the clinical age. 2. Estimated weight 77th percentile. Abdominal circumference 86th percentile. Jamari Medina M.D. Diagnostic Radiologist [facility] | [email or web address] Transcribed: 1:58 pm DW/Dictated by: Jamari Medina MD @ 12/21/2024 1:12:00 PM (Electronically Signed)"
== END 2024-12-21 12:09 | disposition home or self-care (01) ==
LOC: US 12:08
PROVIDERS: Visit Provider Advanced Practice Midwife
DX: O99.213 Obesity complicating pregnancy, third trimester (principal); O36.63X0 Maternal care for excessive fetal growth, third trimester, not applicable or unspecified; Z3A.32 32 weeks gestation of pregnancy
CPT/HCPCS: 76816

== ENCOUNTER 2025-01-18 09:00 | Outpatient (CLI) | payer BC, SELFPAY ==
[2025-01-19 12:16] LABS: Strep B DNA Probe Negative (Negative)
[2025-01-19 12:35] LABS: Strep B Susceptibility Needed? No
== END 2025-01-18 09:01 | disposition home or self-care (01) ==
LOC: NFLDREF 09:01
PROVIDERS: Visit Provider Advanced Practice Midwife
DX: Z34.93 Encounter for supervision of normal pregnancy, unspecified, third trimester (principal)
CPT/HCPCS: 87081; 87653

== ENCOUNTER 2025-02-20 03:49 | Inpatient (IN) | payer BC, SELFPAY ==
[2025-02-20] VITALS (32 sets, daily range): BP systolic 108–165; BP diastolic 73–104; PULSE 70–111; RESP 16–20; TEMP 36.4–37.6; O2SAT 9–99; BMI 18.7
[2025-02-20] MEDS: LACTATED RINGERS 1000 ML 1,000 ML 1200 ML IV (03:59)
[2025-02-20 04:14] LABS: Hematocrit* 39.1 % (33.0-51.0); Hemoglobin* 11.9 gm/dL (12.0-16.0); Immature Granulocytes Abs Auto 0.00 K/uL (0.00-0.30); Immature Granulocytes Pct Auto 0.4 %; Lymphocytes Absolute Auto 2.80 K/uL (0.90-2.90); Mean Corpuscular HGB Conc 30 gm/dL (32-36); Mean Corpuscular Hemoglobin 23 pg (26-34); Mean Corpuscular Volume 76 fL (80-100); RDW Coefficient of Variation % 13.6 % (11.5-15.5); Red Blood Count* 5.16 m/uL (4.00-5.20); Slide Review Reflex No; White Blood Count* 12.24 K/uL (4.50-11.00)
[2025-02-20] MEDS: OXYTOCIN 30 unit/500 ML in NS 30 UNIT/500 ML BAG 300 UNIT IVPB (04:28)
[2025-02-20] MEDS: miSOPROStoL 800 MCG/4 TABLET PR (04:53)
[2025-02-20] MEDS: LACTATED RINGERS 1000 ML 1,000 ML 500 ML IV (05:37)
--- NOTE | 2025-02-20 05:42 | P.OBCN_ITS ---
OB - CN: HPI Date of Consult Time Seen by Provider: 05:43 Date Seen: 02/20/25 Patient: [facility] Patient Consult date: 02/20/25 Requesting Physician: Deirdre Rice CNM Primary Care Provider: Not a Local Provider Consult Narrative Narrative: The patient is a 35 year old G 4 P 2 at 40 weeks gestation that was admitted to the Center on 02/20/25 for spontaneous onset of labor. She had an uncomplicated vaginal delivery with the CNM service. Placenta failed to deliver within 30 minutes, despite IV Pitocin, p.o. Cytotec and traction on the umbilical cord. Ob consult was requested at 0506. QBL at that time was about 400 mL. Pain control was noted to be suboptimal, patient had unmedicated delivery and received 100mcg IV fentanyl and nitrous gas. Requested OR to present given difficulty with pain control. I arrived to the bedside shortly thereafter, where QBL was noted to be 850mL by ENDY. I discussed with patient this represents a retained placenta, where anticipated next step would be manual removal of the placenta. Offered to attempt removal at bedside, where patient politely declined due to pain. OR was en route. She was agreeable to an exam. History History 4 Elective abortions 0 Para 2 Spontaneous abortions 1 Hx # Term Pregnancies 2 Ectopic pregnancies 0 Hx # Pregnancies 0 Multiple births 0 Number of Living Children 2 Past Pregnancies Del. Date GA/Weeks Outcome Route wt Inf Gender Labor Lgth Anesthesia Location Provider [facility] 02/13/21 40 live - full term 7 lb 3 oz Female 9hrs (5hrs active) [place] 11/09/23 41 live - full term 8 lb 14 oz Female 10 hours epidural ENDY [place] gestational hypertension Delivery Date: 11/09/23 Last Updated by: Cadence Watts CNM Epidural did not work well Labs GBS status: negative OB Labs: Lab Assessment Start: 02/20/25 03:50 Freq: ONCE Status: Complete Protocol: PC.OBGBS Activity Type Activity Date Activity User E-sign Co-sign Detail Recorded Client Recorded Date Recorded By Document 02/20/25 03:54 [facility] [place] No Response 02/20/25 03:58 [facility] [place] 02/20/25 03:54 Lab Assessment GBS Status negative GBS Additional Criteria None No Treatment Needed OK Are Labs Available Yes Maternal Blood Type A Maternal RH Factor Positive Evaluate Maternal Rubella Immune Status Immune Hepatitis B Surface Antigen Negative Maternal HIV Status Negative Maternal Syphillis (RPR) Status Negative PFSH PFSH Medical History Hx of abnormal cervical Pap smear ?Z87.42 - Personal history of other diseases of the female genital tract (ICD-10) Gestational hypertension ?O13.9 - Gestational [-induced] hypertension without significant proteinuria, unspecified trimester (ICD-10) Surgical History [place] teeth extracted ?K08.409 - Partial loss of teeth, unspecified cause, unspecified class (ICD- 10) Family History Mother Dementia Aphasia Paternal Grandfather Colon cancer Maternal Grandmother Myocardial infarction Social History (Updated 01/25/25 @ 09:00 by Dominga Wright) Narrative: SOCIAL??? Education: Bachelors?? Work: [employer]??(risk radiation exposure form taking xrays)? Partner: : Meet??? Lives with: Benjamin and 2 daughters??? Pets: 2 dogs and rabbit??? Abuse: Denies Special Diet: Denies??? Ok with a blood transfusion: yes Culture or worship beliefs: denies ?? RISK FACTORS??? Exercise Times/wk: None?? Hx of Depression and/or Anxiety/other mood disorder: Improved ??? Seat Belt Use: Routinely?? Smoking: Denies ??? Alcohol/day: Denies while ??? Caffeine: 1 per day ??? Drug Use: Denies ??? Chicken Pox: Yes as a child MRSA: Denies ?? REBEKA: 5 PHQ 9: 8??? What is your current living situation?: I presently have a place to live Problems where you live: no known problems In the past 12 months, utilities in danger of being shut off: no In past 12 months, lack of transportation kept you from medical appts, meetings, work, or getting things needed for daily living: no In the past 12 mos, have been you worried that your food would run out before you had money to buy more?: never true In the past 12 mos, the food you bought just didn't last and you didn't have money to buy more?: never true Are you following a diet prescribed by a doctor: No Are you following a special diet: No Smoking Status: Never smoker Do you use any of these nicotine containing products: None Second hand tobacco smoke exposure: No How often do you have a drink containing alcohol: never How often do you have six or more drinks on one occasion: Never AUDIT-C Alcohol total score: 0 Non-prescribed substance use: denies use Caffeine: Yes How often does anyone, including family, friends and others, physically hurt you : never How often does anyone, including family, friends and others, insult or talk down to you: never How often does anyone, including family, friends and others, threaten you with harm: never How often does anyone, including family, friends and others, scream or curse at you: never service: No Meds Home Medications and Allergies Home Medications ?Medication ?Instructions ?Recorded ?Confirmed ?Type acetaminophen 500 mg tablet 500 mg PO Q6H PRN 07/07/24 02/20/25 History (Tylenol Extra Strength) vits 75-iron 28 mg-folic 1 pkg PO QDAY 02/20/25 History acid 800 mcg-omega-3 oral combo pack (One A Day Women's DHA) magnesium amino acid chelate 100 100 mg PO QDAY PRN 02/20/25 History mg tablet famotidine 40 mg tablet (Pepcid) 40 mg PO QDAY 5 02/20/25 History ferrous sulfate 325 mg (65 mg 325 mg PO Q OTHER DAY #9 0 tabs 11/27/24 02/20/25 Rx iron) tablet escitalopram oxalate 10 mg tablet 10 mg PO QDAY #60 ta bs 12/17/24 02/20/25 Rx Allergies Allergy/AdvReac Type Severity Reaction Status Date / Time No Known Drug Allergies Allergy Verified 02/20/25 00:31 OB - H&P: Exam Physical Exam: Vital signs: Temp Pulse Resp BP 98.1 F 81 18 153/91 H 02/20/25 00:44 02/20/25 05:37 02/20/25 00:44 02/20/25 05:37 Narrative: General: Alert and oriented, in no acute distress. Breathing with nitrous mask. Psych: Appropriate mood and affect Pelvic: Umbilical cord noted to be clamped and hanging from vagina. Gentle vaginal exam was completed, where leading edge of the placenta can be palpated. Uterus was stabilized abdominally, where gentle traction on the umbilical cord she demonstrated very slight lengthening with anterior movement of the uterus transabdominally. Attempted to have patient push, however she noted pain with these efforts. There was some increased bleeding during these efforts, where total QBL is now 1.1L. OB - Results Labs Labs: Short CBC 02/20/25 Range/Units 04:03 WBC 12.24 H (4.50-11.00) K/uL Hgb 11.9 L (12.0-16.0) gm/dL Hct 39.1 (33.0-51.0) % Plt Count 284 (140-440) K/uL OB - CN: A/P Assessment and Plan (1) Retained placenta: Status: Acute (2) hemorrhage: Status: Acute (3) History of gestational hypertension: Status: Acute (4) Obesity complicating : Status: Acute (5) Anemia affecting : Status: Acute Plan Arthur is a T35 year old G 4 P 2 at 40 weeks gestation that was admitted to the Center on 02/20/25 for spontaneous onset of labor. is complicated by history of gHTN, anemia, anxiety/depression, obesity. She had an uncomplicated vaginal delivery with the CNM service. Placenta failed to deliver within 30 minutes, despite IV Pitocin, p.o. Cytotec and traction on the umbilical cord - where Ob consult was requested. US reports reviewed, posterior placenta with resolved low lying position. I completed an exam where the placental edge can be palpated vaginally, however it failed to deliver with cord traction and maternal pushing efforts. Pain control is suboptimal, where patient notes she cannot tolerate a more invasive exam at bedside. OR crew is en route, plan to proceed with exam under anesthesia , manual removal of placenta and proceed as indicated. We reviewed the procedure in detail including the risks, benefits and alternatives. Explained that patient is at an increased risk of hemorrhage given her current blood loss and the need for manual removal. If further bleeding is noted following removal of the placenta, explained anticipated next steps including management of atony, potential retained products, laceration repair, etc. Patient had a severe range BP during my exam, thought to be erroneous as arm was bent and patient is shaking. After repositioning the cuff/rest, it was in the mild range. She had another mild range BP upon arrival reportedly. Plan to continue diligent BP monitoring, will aim to avoid Methergine if atony occurs. Explained possible surgical interventions (D&C, surgical management of bleeding including hysterectomy as last resort) where patient expressed understanding. Written consent for exam under anesthesia, manual removal of placenta, proceed as indicated was obtained. QBL 1.1L at present. [address]. Plan to cross for 2 u pRBCs, patient provided consent to transfusion if needed. Uterotonics have included cytotec PO and IV pitocin thus far. Plan to proceed to OR.
--- NOTE | 2025-02-20 05:51 | W.PM.LDBA ---
Subjective History of Present Illness Date Seen: 02/20/25 Narrative: Patient is being admitted to Labor and Delivery for spontaneous labor. She is a 35 year old at 40.5 weeks gestation. Her full history and physical was dictated by Mari Rice CNM and ASYA Calzada on 01/25/25. Please see this for details. She began arleth around 1800 last evening but they increased in frequency and intensity around 2300. she presented to L&D around 0100 and was found to be 4cm. About an hour later she was only slightly changed to 4.5cm and more effaced. She was checked again around 0400 after position changes and a shower and was found to be 7-8 cm. This CNM presented to the unit shortly before that exam to admit her for labor. She began spontaneously push with contractions shortly after. she denied any leaking fluid or bleeding and is appreciating good movement. Specific Issues/Plans G 4 P 2 H&P done 01/25/25 by Mari Rice CNM and ASYA Calzada Order Zurzuvae at time of delivery to start around 2 weeks pp Repeat GBS at 41 weeks # Possible low lying placental lobe, RESOLVED 1.3 cm from os recommended pelvic rest # depression and anxiety significant depression approximately 4 months PP treated with Zurzuvae, 06/06-06/22 when became (time of conception to 4 weeks ?); possible risk of exposure to fetus unknown Consider , doing Zurzuvae, message out to rep to confirm it is safe to use again 02/01 Order Zurzuvae at time of delivery to consider starting at 2 weeks pp # Obesity BMI 35.9 at new OB visit Nutrition consult sent: Met 07/24 Weekly testing starting @ 37 weeks Consider growth US @ 32 weeks Delivery recommended: Elective delivery considered @ >39 weeks #Hx of Gestational Hypertension diagnosed during last labor no need for treatment Baseline labs drawn 08/07: WNL taking baby ASA #N/V of Tried zofran previous pregnancies with no success Rx Compazine; switched 08/07 to Reglan #+RPR, Neg Treponema 07/14/2024-likely biological false Positive RPR since Treponema is negative, but to be more certain that it just isn't a very early infection, will need to draw another treponema in 4 weeks. Discussed w/ pt 07/14/2024. Repeat Treponema 08/07 negative # Close spaced . Delivery 11/09/23. #Anemia Hgb 10.9 at 28 wks- iron supplement ordered needed IV iron last Imaging: Ultrasound #1: No LMP since last , 8 1/ weeks by u/s? DOROTHY: 02/15/25 by 1st trimester u/s??? Anatomy 10/02/2024: 1. Transvaginal imaging of the cervix and placental edge performed to better evaluate the anatomy. The cervix is closed and measures 5.4 cm. An accessory placental lobe is located posteriorly with the placental edge 1.3 cm from the internal cervical os. The main placenta is located anteriorly and the placental edge is 3.0 cm from the internal cervical os. 2. Incomplete visualization of the nose and lips. Short-term follow-up recommended. Remainder of the anatomic survey normal. 3. Placenta floyd appears to be present which measures 6.5 x 2.4 cm which is near the placental cord insertion. 4. Concordance of clinical and sonographic dating. Follow-up 10/30/2024: IMPRESSION: 1. Normal nose and lips. 2. Placental floyd measures 3.9 x 2.3 x 3.7 cm, decreased in size from prior. 3. Placenta appears to be anterior on today exam. An accessory lobe is not appreciated. 12/21/2024: F/U US-EFW 77%. Anterior placenta, Vertex! Vaccines: COVID: initial series, one booster Flu: 01/18/2025 TDAP: 12/11/2024 RSV: 12/21/2024 32wk Mental Health: 12/21/2024 34wk Hgb:01/04/25 OB - Problem Based A/P Additional Plan (1) Pain during labor: Status: Acute (2) History of gestational hypertension: Status: Acute (3) Obesity complicating : Status: Acute (4) anxiety: Status: Acute (5) depression: Status: Acute (6) Anemia affecting : Status: Acute Plan ASSESSMENT:? ?at?40.5?weeks gestation? GBS?negative? ?complicated by: obesity, anemia, hx gestational hypertension, close spaced pregnancies, +RPR-repeats negative, anxiety/depression (on Zurzuvae at time of conception) Elevated BP on admit, repeat normal Labor type: spontaneous Blood type: A+? ?? PLAN:? 1.?Candidate for analgesia of choice. Requested epidural. ? 2. Monitor blood?pressures. Consider labs?with additional elevated readings. ? 3. Anticipate ? 4. Expectant management at this time.? 5. IV in place 6. Intermittent auscultation after reactive tracing is obtained. Delivery/Labor/Induction Plan Plan: expectant management OB Result Labs Blood Type: A (+) positive Rubella: immune RPR/VDLR: nonreactive (initial RPR at NOB was positive, negative on repeat ) GBS Status: negative HBsAG: negative OB Exam Physical Exam Vital signs: Temp Pulse Resp BP 98.1 F 81 18 153/91 H 02/20/25 00:44 02/20/25 05:37 02/20/25 00:44 02/20/25 05:37 Narrative: Psychiatric:? Alert and oriented x3? HEENT:? Normocephalic, atraumatic? Neck:? Supple without adenopathy or thyromegaly? Lungs:? Clear to auscultation bilaterally? Heart:? Regular rate and rhythm, no murmur, rub or gallop? Abdomen:? Soft, nontender, and gravid? Extremities:? No edema or erythema? Detailed Labor and Delivery Exam Patient Gravid: yes Dilation (cm): 8 Effacement (%): 90 Cervix position: mid Contraction Frequency: 2-3 min Contraction intensity: Strong/Firm Fetus (Single) Station: 0 Amniotic Membrane Status: intact Heart Rate Baseline: 120 Monitor Accelerations: Present Monitor Decelerations: None Prison Variability: Moderate (6-25)
--- NOTE | 2025-02-20 06:09 | W.PM.OBVAGDE ---
OB Procedure Vag Delivery Mother Details Mother Details: The patient is a 35 year-old, 4, Para 2, admitted on 02/20/25 at 40.5 Days gestation. : 4 Para: 3 Weeks Gestation: 40.5 Admission Date: 02/20/25 Additional Details Amniotic Membrane Status: SROM Amniotic Membrane Rupture Date: 02/20/25 Amniotic Membrane Rupture Time: 04:14 Amniotic Membrane Fluid Description: Clear Analgesia/Anesthesia Type: None (fentanyl and nitrous after delivery for placenta ) Waterbirth: No Pitcoin: Yes (AMTSL) Intrapartal Events: Precipitous Labor <3 Hrs Labor Onset: 02:12 Complete: 04:12 Pushin:12 Heart: heart tones during second stage were heard by doppler to be in the 130's. Only auscultated once due to rapid second stage. Delivery Details Delivery Date: 02/20/25 Delivery Time: 04:26 Route of delivery: Gender: Female Infant Viability: Alive; Heart Rate Present Position at Delivery: OA Delivery Details: Patient was admitted for spontaneous labor and progressed normally. SROM noted at 0414 with clear fluid. Patient was presumed complete with spontaneous pushing at 0412. of a viable female at 0426 on her knees at the side of the bed on a mat. Vertex delivered OA. No shoulder. Nuchal cord x1 easily reduced on at the perineum. Membranes were covering the babies face at time of delivery. They were quickly removed at the same time that the nuchal cord was reduced. Body delivered easily and without incident. Arthur was unable and declined to turn or reach between her legs to hold her baby so it was wrapped with cord intact behind her legs. She had a vigorous cry. Cord was clamped and cut at > 5 minutes and baby was brought around to [place]. She declined to hold her baby after she returned to bed and baby was placed skin to skin with dad. APGARS were 7 at one minute and 8 at five minutes respectively. Mouth was bulb suctioned. Placenta had not delivered by 25 minutes after delivery so PO Cytotec was given. Discussed PO vs Rectal but given she was unmedicated and bleeding was minimal she was given PO. Around 0510 the placenta was still not delivered so Dr. Austin was noticed and requested at the bedside. Her bleeding did increase before her arrival but despite slight lengthening in the cord the placenta was not showing indication of delivery. QBL was 850 in the drapes at the time Dr. Austin arrived. She did have a PPH and was given a blood transfusion in the OR. See her note for further information about placenta delivery in the OR. Fundus firm. No laceration was identifed in the room and confirmed in the OR. Mother plans to pump and bottle feed. Infant weight pending. 1 Minute Interval Total Score: 7 5 Minute Interval Total Score: 8 Additional Details Shoulder Dystocia: No Placental Delivery Description: OR Procedure Done: Global Laceration: None Episiotomy Description: None Blood Loss Measurement Type: QBL Bakri Used: No Sponge/Need Count Correct: Yes Event Summary Status: Mother and were stable after delivery. Disposition: floor
--- NOTE | 2025-02-20 06:17 | W.PM.GYNPROC ---
Procedure Note Time Seen by Provider: 06:17 Date of procedure: 02/20/25 Will [facility] bill your pro fee for this procedure?: Yes Pre-op diagnosis: Retained placenta hemorrhage Preeclampsia with severe features Post-op diagnosis: Retained placenta hemorrhage due to atony, retained tissue Preeclampsia with severe features Procedure: Exam under anesthesia Manual removal of placenta Suction dilation and curettage Placement of Anahy Anesthesia: GETA Complications: hemorrhage Surgeon: Jonah Austin MD Estimated blood loss (mL): 2,052 (1300 from prior to OR is included in total, operative QBL was 752) IV fluids (mL): 800 Urine Output (mL): 100 Pathology: specimen obtained, sent to pathology Condition: stable Disposition: floor Findings: Retained placenta Uterine atony Procedure Description: After verifying written informed consent, the patient was taken to the operating room. Anesthesia was induced and found to be adequate. She was placed in the [facility] care taken to avoid neurologic injury. She received a preoperative dose of ancef. She was prepared and draped in the usual sterile fashion. During positioning/draping, large volume bleeding was noted per vagina. Code purple and MTP were activated, with plan to proceed emergently to start case. A surgical pause was conducted to confirm correct patient and procedure. Vaginal exam was performed, where the leading edge of the placenta could be palpated vaginally. Using a hand to stabilize the uterus abdominally, the other hand was introduced to the endometrial cavity. A plane was established between the posterior uterine wall and placenta where partial separation had previously occurred. Manual separation continued carefully toward the uterine fundus, where there was more difficulty maintaining this plane toward the superior and right margin of placenta. Care was made to gently develop the plane, then placenta was grasped in its entirety and removed with gentle downward traction. Placenta was placed on back table. IV pitocin was started. Uterine atony was noted, where rigorous bimanual massage ensued. IV TXA and IM Hemabate were requested and administered. Transabdominal ultrasound was performed, where the lower portion of the endometrial cavity was noted to be homogeneous and thin. There was heterogeneity toward the top and right, consistent with the area that I had more difficulty with manual removal. The endometrial stripe appeared thickened and heterogenous there. As such, I proceeded to a suction dilation and curettage. The cervix was grasped with a ring forceps and under direct visualization with ultrasound, an 11 curved suction curette was introduced and advanced to the uterine fundus. The intrauterine contents were aspirated until there was no further return of tissue, two passes. Repeat transabdominal ultrasound demonstrated thin and homogenous endometrial stripe throughout. Persistent atony of the lower uterine segment was noted. Wilma was requested, inserted into the endometrial cavity and the vaginal balloon was advanced to just distal of the cervix. Vaginal balloon was inflated with 100 mL normal saline. Anahy was placed to suction 80mmHg. Immediate return of about half of the tubing occurred, with no further accumulation of blood noted in tubing/canister. No bleeding was noted around the Anahy per vagina. Perineal exam was completed, no lacerations identified. MTP was discontinued. Procedure was deemed complete. Final QBL was 2,052mL - 1.3L from prior to OR and 752mL in OR. She received 1 u pRBCs uncrossmatched and a 2nd that was crossmatched. Sponge and instrument count was correct. The patient was transferred to the recovery room in excellent condition. Products of conception were submitted to pathology. Surgical debrief completed with the above details. Pathology is placenta and endometrial curettings.
[2025-02-20] MEDS: MAGNESIUM IV 4 GM/100 ML PIGGYBACK IVPB (06:34)
[2025-02-20 06:48] LABS: Hematocrit* 31.9 % (33.0-51.0); Hemoglobin* 9.7 gm/dL (12.0-16.0); Mean Corpuscular HGB Conc 30 gm/dL (32-36); Mean Corpuscular Hemoglobin 23 pg (26-34); Mean Corpuscular Volume 77 fL (80-100); Red Blood Count* 4.15 m/uL (4.00-5.20); White Blood Count* 16.93 K/uL (4.50-11.00)
[2025-02-20 06:52] LABS: Slide Review Reflex No
[2025-02-20] MEDS: MAGNESIUM Infusion 40 GM/1,000 ML IV.SOLN IVPB (07:08)
[2025-02-20 07:12] LABS: INR 0.97 (0.91-1.10); Prothrombin Time 13.7 Seconds
[2025-02-20 07:14] LABS: Blood Urea Nitrogen* 10 mg/dL (5-24); Creatinine* 0.8 mg/dL (0.5-1.5); Est. Creatinine Clearance* 87.27; Estimated Glomerular Filt Rate 99 ml/min
[2025-02-20 07:15] LABS: Alanine Aminotransferase* 15 U/L (4-35); Aspartate Amino Transferase* 24 U/L (12-35)
--- NOTE | 2025-02-20 07:46 | P.ANES_ITS ---
Anesthesia Charges Start Date/Time Anesthesia Start Date: 02/20/25 Anesthesia Start Time: 06:16 Stop Date/Time Anesthesia Stop Date: 02/20/25 Anesthesia Stop Time: 07:26 Summary Emergency: VAMP STITCHER Coding CPT Codes CPT Codes: ANESTH VAGINAL PROCEDURES - 95918 ([id number]) P2 - PATIENT W/MILD SYST DISEASE, QZ - VAMP STITCHER SVC W/O AIRCRAFT QUALITY CONTROL INSPECTOR BY Additional Codes: Summary - Emergency: VAMP STITCHER ([id number])
--- NOTE | 2025-02-20 07:46 | W.ANESCHARGE ---
Anesthesia Charges Start Date/Time Anesthesia Start Date: 02/20/25 Anesthesia Start Time: 06:16 Stop Date/Time Anesthesia Stop Date: 02/20/25 Anesthesia Stop Time: 07:26 Summary Emergency: KEG WASHER Coding CPT Codes CPT Codes: ANESTH VAGINAL PROCEDURES - 36934 ([id number]) P2 - PATIENT W/MILD SYST DISEASE, QZ - KEG WASHER SVC W/O PAIRER BY Additional Codes: Summary - Emergency: KEG WASHER ([id number])
--- NOTE | 2025-02-20 08:14 | SUR.OPER ---
QBL calculated by weight of sponges,sheets, towel, and blood in catch bag and suction canisters.
--- NOTE | 2025-02-20 08:16 | SUR.OPER ---
Anahy secured to right inner thigh with two sections of white tape. Urinary cathetar storey applied to inner right thigh.
[2025-02-20 10:30] LABS: Hematocrit* 32.8 % (33.0-51.0); Hemoglobin* 10.2 gm/dL (12.0-16.0); Immature Granulocytes Pct Auto 0.4 %; Mean Corpuscular HGB Conc 31 gm/dL (32-36); Mean Corpuscular Hemoglobin 24 pg (26-34); Mean Corpuscular Volume 78 fL (80-100); RDW Coefficient of Variation % 14.5 % (11.5-15.5); Red Blood Count* 4.20 m/uL (4.00-5.20); White Blood Count* 19.45 K/uL (4.50-11.00)
[2025-02-20 10:33] LABS: Immature Granulocytes Abs Auto 0.10 K/uL (0.00-0.30); Lymphocytes Absolute Auto 1.40 K/uL (0.90-2.90); Slide Review Reflex No
[2025-02-20 12:27] LABS: Hematocrit* 32.8 % (33.0-51.0); Hemoglobin* 10.2 gm/dL (12.0-16.0); Mean Corpuscular HGB Conc 31 gm/dL (32-36); Mean Corpuscular Hemoglobin 24 pg (26-34); Mean Corpuscular Volume 78 fL (80-100); Red Blood Count* 4.22 m/uL (4.00-5.20); White Blood Count* 22.02 K/uL (4.50-11.00)
[2025-02-20 12:37] LABS: Slide Review Reflex No
[2025-02-20 12:41] LABS: Blood Urea Nitrogen* 9 mg/dL (5-24); Creatinine* 0.7 mg/dL (0.5-1.5); Est. Creatinine Clearance* 99.74; Estimated Glomerular Filt Rate 116 ml/min
[2025-02-20 12:42] LABS: Alanine Aminotransferase* 17 U/L (4-35); Aspartate Amino Transferase* 46 U/L (12-35)
[2025-02-20 18:25] LABS: Hematocrit* 29.2 % (33.0-51.0); Hemoglobin* 9.1 gm/dL (12.0-16.0); Mean Corpuscular HGB Conc 31 gm/dL (32-36); Mean Corpuscular Hemoglobin 24 pg (26-34); Mean Corpuscular Volume 78 fL (80-100); Red Blood Count* 3.76 m/uL (4.00-5.20); White Blood Count* 19.83 K/uL (4.50-11.00)
[2025-02-20 18:27] LABS: Slide Review Reflex No
[2025-02-20] MEDS: LACTATED RINGERS 1000 ML 1,000 ML 75 ML IV (18:42)
[2025-02-20 18:47] LABS: Alanine Aminotransferase* 18 U/L (4-35); Aspartate Amino Transferase* 42 U/L (12-35); Blood Urea Nitrogen* 7 mg/dL (5-24); Creatinine* 0.8 mg/dL (0.5-1.5); Est. Creatinine Clearance* 87.27; Estimated Glomerular Filt Rate 99 ml/min
[2025-02-21] VITALS (14 sets, daily range): BP systolic 101–121; BP diastolic 67–94; PULSE 72–96; RESP 16–18; TEMP 36.1–37.1; O2SAT 95–99
[2025-02-21 00:51] LABS: Hematocrit* 25.0 % (33.0-51.0); Hemoglobin* 8.0 gm/dL (12.0-16.0); Mean Corpuscular HGB Conc 32 gm/dL (32-36); Mean Corpuscular Hemoglobin 25 pg (26-34); Mean Corpuscular Volume 78 fL (80-100); Red Blood Count* 3.22 m/uL (4.00-5.20); White Blood Count* 14.66 K/uL (4.50-11.00)
[2025-02-21] MEDS: ACETAMINOPHEN 500 MG TABLET 1000 MG PO ×3 (01:00→18:38)
[2025-02-21 01:05] LABS: Alanine Aminotransferase* 14 U/L (4-35); Aspartate Amino Transferase* 32 U/L (12-35); Blood Urea Nitrogen* 9 mg/dL (5-24); Creatinine* 0.7 mg/dL (0.5-1.5); Est. Creatinine Clearance* 99.74; Estimated Glomerular Filt Rate 116 ml/min
[2025-02-21 02:37] LABS: Slide Review Reflex No
[2025-02-21] MEDS: MAGNESIUM Infusion 40 GM/1,000 ML IV.SOLN IVPB (02:46)
[2025-02-21 07:15] LABS: Hematocrit* 24.5 % (33.0-51.0); Mean Corpuscular HGB Conc 31 gm/dL (32-36); Mean Corpuscular Hemoglobin 24 pg (26-34); Mean Corpuscular Volume 79 fL (80-100); Red Blood Count* 3.09 m/uL (4.00-5.20); White Blood Count* 12.64 K/uL (4.50-11.00)
[2025-02-21 07:32] LABS: Hemoglobin* 7.5 gm/dL (12.0-16.0)
[2025-02-21 07:33] LABS: Slide Review Reflex No
[2025-02-21] MEDS: IBUPROFEN 600 MG TABLET PO ×3 (07:52→20:08)
[2025-02-21] MEDS: DOCUSATE SODIUM 100 MG CAPSULE PO (07:52)
--- NOTE | 2025-02-21 11:09 | PM.OBPNVD1 ---
OB - PN:Subj Subjective Date Seen: 02/21/25 Interval history: The patient is a 35 year old G 4 P 2 at 40 weeks gestation that was admitted to the Center on 02/20/25 for spontaneous onset of labor. She had a vaginal delivery with the CN service. Delivery was complicated by retained placenta and hemorrhage. This was treated with manual removal of the placenta, suction dilation and curettage, placement of Anahy. MTP was activated and she received 2u of pRBC in the OR. Final QBL was 2,052mL - 1.3L from prior to OR and 752mL in OR. Anahy removed 4 hrs after placement with minimal return in the canister. During her hemorrhage, she was also diagnosed with preeclampsia with severe features based on severe ranging blood pressures. While she had treatable BP, IV antihypertensive was held as she was imminently being induced for general anesthesia. She is status post 24 hours of magnesium sulfate for seizure prophylaxis. Narrative: Overnight patient complains of extreme fatigue and disorientation. This has improved with cessation of magnesium sulfate. She did not meet most of her postoperative milestones overnight. When she was ambulating more this morning, she does endorse dizziness. A.m. hemoglobin was 7.5 gm/dL. I ordered her another unit of pRBC. Her pain is well controlled on oral pain medications. She is tolerating a regular diet. She has passed flatus. She is not yet ambulating without difficulty. Lochia is scant. She is urinating with trejo. Patient denies chest pain, SOB, n/v, headache, RUQ pain, vision changes. +Dizziness. Discussed with patient plan for repeat Hgb 2hr after completion of her unit of pRBC. OB - PN: Obj Exam Physical Exam: Vital signs: Temp Pulse Resp BP Pulse Ox O2 Del Method 97.8 F 87 16 106/71 97 Room Air 02/21/25 10:41 02/21/25 10:41 02/21/25 10:41 02/21/25 10:41 02/21/25 10:41 02/21/25 10:41 Narrative: Physical exam: General: No acute distress. Receiving blood. Psych: Alert and oriented x4, full affect HEENT: Normocephalic, atraumatic. Pale conjunctival pallor bilaterally Heart: Regular rate and rhythm, no murmur rub or gallop Lungs: Clear to auscultation bilaterally Abdomen: Normoactive bowel sounds, soft, no tenderness, rebound, or guarding Skin: No lesions or rashes Lower extremities: +1 bilateral lower extremity edema Pelvic exam: Scant lochia on pad. No bleeding on fundal massage OB - PN: Obj Data Labs Labs: Laboratory Results - last 24 hr 02/20/25 02/20/25 02/20/25 04:03 12:20 18:19 WBC 22.02 H 19.83 H RBC 4.22 3.76 L Hgb 10.2 L 9.1 L Hct 32.8 L 29.2 L MCV 78 L 78 L MCH 24 L 24 L MCHC 31 L 31 L Plt Count 233 213 BUN 9 7 Creatinine 0.7 0.8 Estimated Creat Clear 99.74 87.27 Estimated GFR 116 99 Magnesium 4.5 H* 5.1 H* AST 46 H 42 H ALT 17 18 Blood Type A Positive Antibody Screen NEGATIVE Crossmatch (AHG) See Detail 02/21/25 02/21/25 02/21/25 00:29 06:50 06:50 WBC 14.66 H 12.64 H RBC 3.22 L 3.09 L Hgb 8.0 L 7.5 L* Cancelled Hct 25.0 L 24.5 L MCV 78 L 79 L MCH 25 L 24 L MCHC 32 31 L Plt Count 196 167 BUN 9 Creatinine 0.7 Estimated Creat Clear 99.74 Estimated GFR 116 Magnesium 5.2 H* AST 32 ALT 14 Blood Type Antibody Screen Crossmatch (AHG) OB - PN: A/P Delivery Assessment and Plan (1) hemorrhage: Status: Acute Assessment and Plan: - Total QBL 2,052 mL - s/p removal of retained placenta, D&C, ANAHY placement and removal, IV TXA and Hemabate - Currently, minimal bleeding (2) Retained placenta: Status: Acute Assessment and Plan: - s/p manual removal in OR - Pathology pending (3) Acute blood loss anemia: Status: Acute Assessment and Plan: - Predelivery hgb 11.9 --> post delivery Hgbs 9.7 --> s/p 1u of pRBC --> 10.2 --> s/p 2nd unit of pRBC --> 9.1 --> 8.0 --> 7.5 this AM --> transfusion 3rd unit of pRBC (4) Severe pre-eclampsia: Status: Acute Assessment and Plan: Pre-Eclampsia/gestational hypertension with severe features - Based on severe ranging blood pressures - BPs overnight 100-110s/60-90s - Symptoms: Headache - Magnesium: Status post 24 hours magnesium for seizure prophylaxis - IV antihypertensives: Currently not indicated - PO antihypertensives: Currently not indicated - Pre-eclampsia labs on 02/21/2025 at midnight: Hgb 8.0 Plt 196 Cr 0.7 ALT 14 AST 32. A.m. preeclampsia labs pending - UOP: Excellent urine output. 3.58 mL per kg per hour in the last 4 hours (5) anxiety: Status: Acute (6) depression: Status: Acute Assessment and Plan: - CNM service are ready submitted pre approval for [facility] Plan Postoperative care: - Diet: Advance as tolerated - Fluid: Encourage oral intake - Activity: Encourage ambulation and incentive spirometry - Pain: Acetaminophen, Ibuprofen, and oxycodone PRN - DVT prophylaxis: SCDs and TEDs when not ambulating. Ppx Lovenox held due to acute management of blood loss Dispo: Patient is PPD/POD#1. Need the following milestones: finish her transfusion, ambulate without assistance, void without catheter. Anticipate discharge POD#2/3.
[2025-02-21 13:15] LABS: Hematocrit* 25.7 % (33.0-51.0); Hemoglobin* 8.0 gm/dL (12.0-16.0); Immature Granulocytes Pct Auto 0.5 %; Mean Corpuscular HGB Conc 31 gm/dL (32-36); Mean Corpuscular Hemoglobin 25 pg (26-34); Mean Corpuscular Volume 81 fL (80-100); RDW Coefficient of Variation % 15.7 % (11.5-15.5); Red Blood Count* 3.16 m/uL (4.00-5.20); White Blood Count* 11.63 K/uL (4.50-11.00)
[2025-02-21 13:17] LABS: Immature Granulocytes Abs Auto 0.10 K/uL (0.00-0.30); Lymphocytes Absolute Auto 2.50 K/uL (0.90-2.90); Slide Review Reflex No
[2025-02-21 16:11] LABS: Alanine Aminotransferase* 12 U/L (4-35); Aspartate Amino Transferase* 27 U/L (12-35); Blood Urea Nitrogen* 8 mg/dL (5-24); Creatinine* 0.8 mg/dL (0.5-1.5); Est. Creatinine Clearance* 99.95; Estimated Glomerular Filt Rate 99 ml/min
[2025-02-22 04:04] VITALS: BP 117/80; PULSE 74; RESP 19; TEMP 36.6; O2SAT 96
[2025-02-22] MEDS: IBUPROFEN 600 MG TABLET PO ×2 (04:07→12:47)
[2025-02-22 04:18] LABS: Hematocrit* 23.2 % (33.0-51.0); Immature Granulocytes Abs Auto 0.10 K/uL (0.00-0.30); Immature Granulocytes Pct Auto 1.1 %; Lymphocytes Absolute Auto 2.92 K/uL (0.90-2.90); Mean Corpuscular HGB Conc 31 gm/dL (32-36); Mean Corpuscular Hemoglobin 25 pg (26-34); Mean Corpuscular Volume 82 fL (80-100); RDW Coefficient of Variation % 15.4 % (11.5-15.5); Red Blood Count* 2.84 m/uL (4.00-5.20); White Blood Count* 9.21 K/uL (4.50-11.00)
[2025-02-22 04:19] LABS: Hemoglobin* 7.1 gm/dL (12.0-16.0)
[2025-02-22 04:20] LABS: Slide Review Reflex No
[2025-02-22 04:30] LABS: Blood Urea Nitrogen* 11 mg/dL (5-24); Creatinine* 0.7 mg/dL (0.5-1.5); Est. Creatinine Clearance* 114.23; Estimated Glomerular Filt Rate 116 ml/min
[2025-02-22 04:31] LABS: Alanine Aminotransferase* 11 U/L (4-35); Aspartate Amino Transferase* 25 U/L (12-35)
[2025-02-22 05:06] LABS: Bilirubin Direct* 0.1 mg/dL (0.0-0.5)
[2025-02-22 05:08] LABS: INR 0.85 (0.91-1.10); Prothrombin Time 12.4 Seconds
[2025-02-22 06:39] LABS: Hematocrit* 22.8 % (33.0-51.0); Immature Granulocytes Abs Auto 0.11 K/uL (0.00-0.30); Immature Granulocytes Pct Auto 1.2 %; Lymphocytes Absolute Auto 2.64 K/uL (0.90-2.90); Mean Corpuscular HGB Conc 31 gm/dL (32-36); Mean Corpuscular Hemoglobin 25 pg (26-34); Mean Corpuscular Volume 82 fL (80-100); RDW Coefficient of Variation % 15.5 % (11.5-15.5); Red Blood Count* 2.77 m/uL (4.00-5.20); White Blood Count* 8.99 K/uL (4.50-11.00)
[2025-02-22 06:49] LABS: Hemoglobin* 7.0 gm/dL (12.0-16.0); Slide Review Reflex No
[2025-02-22] MEDS: DOCUSATE SODIUM 100 MG CAPSULE PO (08:40)
[2025-02-22 08:43] VITALS: BP 109/73; PULSE 74; RESP 16; TEMP 36.6
[2025-02-22] MEDS: ACETAMINOPHEN 500 MG TABLET 1000 MG PO (10:05)
--- NOTE | 2025-02-22 10:33 | PM.OBPNVD1 ---
OB - PN:Subj Subjective Date Seen: 02/22/25 Interval history: Arthur is a 35-year-old G4 now P 3-0-1-3 woman who is status post normal spontaneous vaginal delivery on February 20 at 40 weeks gestation. She had retained placenta requiring D&C. She had hemorrhage of 2052 mL, managed with Anahy and 3 units of packed red cells. She had diagnosis of severe preeclampsia by blood pressure criteria early in her course. She is status post 24 hours of IV magnesium sulfate infusion. She has been almost entirely normotensive during her course. She is not treated with any antihypertensives. was otherwise complicated by history of gestational hypertension, history of low-lying placenta that resolved, false-positive RPR, anemia, and history of anxiety/depression with plan to treat with Zurzuvae. OB - PN: Obj Exam Physical Exam: Vital signs: Temp Pulse Resp BP Pulse Ox O2 Del Method 97.9 F 74 16 109/73 96 Room Air 02/22/25 08:43 02/22/25 08:43 02/22/25 08:43 02/22/25 08:43 02/22/25 04:04 02/22/25 08:43 she has had greater than a L of urine output since midnight. OB - PN: Obj Data Labs Labs: Laboratory Results - last 24 hr 02/20/25 02/21/25 02/21/25 04:03 06:50 13:05 WBC 11.63 H RBC 3.16 L Hgb 8.0 L Hct 25.7 L MCV 81 MCH 25 L MCHC 31 L RDW Coeff of Danny 15.7 H Plt Count 166 Neut % (Auto) 72.1 H Lymph % (Auto) 21.9 Carlton % (Auto) 4.8 Eos % (Auto) 0.4 Baso % (Auto) 0.3 Neut # (Auto) 8.40 H Lymph # (Auto) 2.50 Carlton # (Auto) 0.60 Eos # (Auto) 0.00 Baso # (Auto) 0.00 Abs Immat Gran (auto) 0.10 Imm/Tot Granulo (auto) 0.5 INR APTT Fibrinogen BUN 8 Creatinine 0.8 Estimated Creat Clear 99.95 Estimated GFR 99 Magnesium 5.8 H* Direct Bilirubin AST 27 ALT 12 Lactate Dehydrogenase RPR Screen Non Reactive Crossmatch (AHG) See Detail 02/22/25 02/22/25 02/22/25 04:10 04:40 06:13 WBC 9.21 8.99 RBC 2.84 L 2.77 L Hgb 7.1 L* 7.0 L* Hct 23.2 L 22.8 L MCV 82 82 MCH 25 L 25 L MCHC 31 L 31 L RDW Coeff of Danny 15.4 15.5 Plt Count 161 156 Neut % (Auto) 60.0 62.2 Lymph % (Auto) 31.7 29.4 Carlton % (Auto) 5.9 5.8 Eos % (Auto) 1.0 1.1 Baso % (Auto) 0.3 0.3 Neut # (Auto) 5.53 5.59 Lymph # (Auto) 2.92 H 2.64 Carlton # (Auto) 0.50 0.50 Eos # (Auto) 0.09 0.10 Baso # (Auto) 0.03 0.03 Abs Immat Gran (auto) 0.10 0.11 Imm/Tot Granulo (auto) 1.1 1.2 INR 0.85 L APTT 24 Fibrinogen 429 BUN 11 Creatinine 0.7 Estimated Creat Clear 114.23 Estimated GFR 116 Magnesium Direct Bilirubin 0.1 AST 25 ALT 11 Lactate Dehydrogenase 236 RPR Screen Crossmatch ([facility]) Hemoglobin this morning was 7.1 at 4:10 a.m.. Repeat at 6:13 a.m. was 7.0. Platelets are normal. This is the lowest value that she has had during her hospital course. Platelets are 156. INR was 0.85 this morning, a PTT normal. Fibrinogen 429. At 4:10 a.m.: BUN 11, creatinine 0.7 AST 25, ALT 11. OB - PN: A/P Delivery Assessment and Plan (1) hemorrhage: Status: Acute (2) Retained placenta: Status: Acute (3) Acute blood loss anemia: Status: Acute (4) Severe pre-eclampsia: Status: Acute (5) anxiety: Status: Acute (6) depression: Status: Acute
[2025-02-22 12:20] VITALS: BP 116/79; PULSE 74; RESP 16; TEMP 36.8
[2025-02-22] MEDS: FERROUS SULFATE 325 MG TABLET PO (12:47)
--- NOTE | 2025-02-22 14:02 | PM.OBDSVD1 ---
DS: Providers Provider Date Seen: 02/22/25 Date of admission: 02/20/25 03:49 Primary care physician: Not a Local Provider Admitting Clinician: Deirdre Rice CNM Attending Physician on discharge: Billie Grant CNM Date of Discharge: 02/22/25 DS: Diagnosis Discharge Diagnosis (1) Acute blood loss anemia: Status: Acute (2) Severe pre-eclampsia: Status: Acute (3) hemorrhage: Status: Acute (4) Retained placenta: Status: Acute (5) anxiety: Status: Acute (6) depression: Status: Acute Exam Narrative: Exam Narrative: General: Pleasant, no acute distress Heart: Regular rate and rhythm, no murmur or gallop Lungs: Clear to auscultation bilaterally Abdomen: Soft, nontender, fundus well below umbilicus Lower extremities: Trace edema to bilateral shins, no erythema Const: Vital Signs, click to edit/add: Vital Signs - 24 hr 02/21/25 16:35 02/21/25 20:05 02/21/25 23:26 Temperature 97.0 F L 98.4 F 98.0 F Pulse Rate [Left P ulse Oximeter] 75 83 96 Respiratory Rate 16 18 18 Blood Pressure [Ri ght Arm] 106/74 117/79 113/75 Pulse Oximetry 99 98 95 Oxygen Delivery Me thod Room Air Room Air Room Air 02/22/25 04:04 02/22/25 08:43 02/22/25 12:20 Temperature 97.9 F 97.9 F 98.2 F Pulse Rate [Left P ulse Oximeter] 74 74 74 Respiratory Rate 19 16 16 Blood Pressure [Ri ght Arm] 117/80 109/73 116/79 Pulse Oximetry 96 Oxygen Delivery Me thod Room Air Room Air Room Air OB - DS: Summary Hospital Course Hospital Course: Arthur is a 35-year-old G4 now P 3-0-1-3 woman who is status post normal spontaneous vaginal delivery on February 20 at 40 weeks gestation. She had retained placenta requiring D&C. She had hemorrhage of 2052 mL, managed with Anahy and 3 units of packed red cells. She had diagnosis of severe preeclampsia by blood pressure criteria early in her course. She is status post 24 hours of IV magnesium sulfate infusion. She has been almost entirely normotensive during her course. She is not treated with any antihypertensives. was otherwise complicated by history of gestational hypertension, history of low-lying placenta that resolved, false-positive RPR, anemia, and history of anxiety/depression with plan to treat with Zurzuvae. Today, on day 2, She has no complaints. She denies any lightheadedness. She notes some pelvic soreness. She is feeding her baby with a combination of formula and expressed breast milk. She denies any heavy bleeding. Hemoglobin this morning was 7.1 at 4:10 a.m.. Repeat at 6:13 a.m. was 7.0. Platelets are normal. This is the lowest value that she has had during her hospital course. Platelets are 156. INR was 0.85 this morning, a PTT normal. Fibrinogen 429. At 4:10 a.m.: BUN 11, creatinine 0.7 AST 25, ALT 11. Peripartum Data Procedures: Procedures Operation Date: 02/20/25 06:15 Actual Procedure Side Surgeon p Exam under anesthesia, Manual removal of placenta, Suction Dilation and Curettage, Placement of Anahy Danielle Austin MD Gender: Female Time Spent with Patient Time attestation: Total time spent providing and/or coordinating discharge services: Discharge Plan Discharge Disposition: Home, Self-Care Date of Admission: 02/20/25 03:49 Attending Provider on Discharge: Billie Grant Primary Care Provider: Provider,Not a Local Condition: Stable Anticipated Discharge Date/Time: 02/22/25 12:39 Discharge Medications: Continued magnesium amino acid chelate 100 mg tablet 100 mg PO QDAY PRN famotidine [Pepcid] 40 mg tablet 40 mg PO QDAY ferrous sulfate 325 mg (65 mg iron) tablet 325 mg PO Q OTHER DAY Qty: 90 0RF acetaminophen [Tylenol Extra Strength] 500 mg tablet 500 mg PO Q6H PRN One A Day Women's DHA 28 mg iron- 800 mcg combo pack 1 pkg PO QDAY escitalopram oxalate 10 mg tablet 10 mg PO QDAY Qty: 60 3RF Zurzuvae 25 mg capsule 50 mg PO QDAY 14 Days Qty: 28 0RF Rx Instructions: administer with a high fat meal Discharge Orders: Discharge Order (Routine); Ordered 02/22/25 Ordered By: Billie Grant Patient Education: OB Vaginal/Bottle Feeding Activity Level: No Restrictions and Activity as Tolerated Discharge Diet: Regular Follow Up Appointments: Provider,Not a Local [Primary Care Provider, Family Practice] Forms: XD Nutrition Info Instructions
== END 2025-02-22 13:20 | disposition home or self-care (01) | DRG 541 ==
LOC: OB OUT 03:49 → OB 03:49
PROVIDERS: Advanced Practice Midwife; Obstetrics & Gynecology; Admitting Provider Advanced Practice Midwife; Visit Provider Advanced Practice Midwife
PROC: 10D17Z9 Manual Extraction of Products of Conception, Retained, Via Natural or Artificial Opening (ICD-10-PCS; principal; 2025-02-20 06:15)
DX: O99.214 Obesity complicating childbirth (principal); E66.9 Obesity, unspecified; O14.14 Severe pre-eclampsia complicating childbirth; O72.0 Third-stage hemorrhage; O99.02 Anemia complicating childbirth; D62 Acute posthemorrhagic anemia; O99.345 Other mental disorders complicating the puerperium; F41.9 Anxiety disorder, unspecified; F53.0 Postpartum depression; O62.3 Precipitate labor; Z37.0 Single live birth; Z3A.40 40 weeks gestation of pregnancy
CPT/HCPCS: 00940; 36415; 36430; 76815; 82248; 82565; 83010; 83615; 83735; 84450; 84460; 84520; 84550; 85018; 85025; 85027; 85384; 85610; 85730; 86592; 86850; 86900; 86901; 86922; 99140; A4314; A9270; J0330; J0690; J1100; J2405; J2590; J2704; J3010; J3475; J3490; J7120; P9016